=== PATIENT | male | born 1945 | race Caucasian/White ===

== ENCOUNTER → 2016-09-16 | Outpatient (REF) ==
[~2016-09-16] MED LIST: 00186-0372-20 IH; ANTIVERT 25MG25 MG PO; ASPIRIN 32325 MG/TAB PO; CEPHALEXIN500 M1 PO; LORTAB 5/500 501 TAB PO; NAPROXEN EC500 MG PO; NO HOME MEDICATIONS; SEPTRA DS 8001 TAB PO; TOPROL XL25 MG PO
[2016-09-16 18:47] LABS: THYROID STIMULATING HORMONE 2.78 uIU/mL (0.465-4.680)
[2016-09-16 19:30] LABS: PSA-TOTAL 1.96 ng/mL (0-4)
== END ==
LOC: ZLAB.WCH 18:04
PROVIDERS: Internal Medicine
DX: Z01.89 Encounter for other specified special examinations (principal)
CPT/HCPCS: G0103

== ENCOUNTER → 2017-09-11 | Outpatient (REF) ==
[2017-09-11 16:41] LABS: THYROID STIMULATING HORMONE 2.48 uIU/mL (0.465-4.680)
[2017-09-11 17:20] LABS: PSA-TOTAL 1.89 ng/mL (0-4)
== END ==
LOC: ZLAB.WCH 15:53
PROVIDERS: Internal Medicine
DX: Z01.89 Encounter for other specified special examinations (principal)
CPT/HCPCS: G0103

== ENCOUNTER 2017-10-08 08:42 | Day surgery (SDC) | payer MEDICARE, BC ==
[~2017-10-08] VITALS: Ht 177.8 cm; Wt 64.0 kg
[2017-10-08] VITALS (8 sets, daily range): BP systolic 99–133; BP diastolic 55–97; PULSE 64–81; TEMP 97–97.5
[2017-10-08] MEDS ORDERED: SYMBICORT AER 160 IH (09:45)
[2017-10-08] MEDS ORDERED: VENTOLIN0.09 MG IH (09:46)
[2017-10-08] MEDS ORDERED: NORCO 325 MG-51 TAB PO (13:47)
== END 2017-10-08 14:33 | disposition home or self-care (01) ==
LOC: SDCO 08:42
DX: K40.91 Unilateral inguinal hernia, without obstruction or gangrene, recurrent (principal); J43.9 Emphysema, unspecified; K21.9 Gastro-esophageal reflux disease without esophagitis; Z90.2 Acquired absence of lung [part of]; Z87.891 Personal history of nicotine dependence; Z85.118 Personal history of other malignant neoplasm of bronchus and lung
CPT/HCPCS: A4314; C1781; J0690; J1100; J2704; J3010; J7120

== ENCOUNTER 2018-03-26 06:11 | Day surgery (SDC) | payer MEDICARE, BC ==
[~2018-03-26] VITALS: Ht 177.8 cm; Wt 55.0 kg
[~2018-03-26 06:11] MED LIST changes: +00186-0370-20 IH; +NORCO 325 MG-51 TAB PO; +VENTOLIN0.09 MG IH
[2018-03-26 06:35] VITALS: BP 127/80; PULSE 92; TEMP 97.7
[2018-03-26 07:55] VITALS: BP 108/73; PULSE 89; TEMP 97
[2018-03-26 08:10] VITALS: BP 82/60; PULSE 88
[2018-03-26 08:25] VITALS: BP 116/78; PULSE 80
[2018-03-26 08:40] VITALS: BP 108/76; PULSE 79
== END 2018-03-26 09:14 | disposition home or self-care (01) ==
LOC: SDCO 06:11
DX: Z12.11 Encounter for screening for malignant neoplasm of colon (principal); K62.1 Rectal polyp; K22.10 Ulcer of esophagus without bleeding; K21.0 Gastro-esophageal reflux disease with esophagitis; K22.2 Esophageal obstruction; K92.1 Melena; J43.9 Emphysema, unspecified; K57.30 Diverticulosis of large intestine without perforation or abscess without bleeding; K64.1 Second degree hemorrhoids; Z86.010 Personal history of colon polyps; Z85.118 Personal history of other malignant neoplasm of bronchus and lung; Z87.891 Personal history of nicotine dependence
CPT/HCPCS: J2704; J7120

== ENCOUNTER → 2018-06-07 | Outpatient (REF) | LOC: ZLAB.WCH 15:54 | DX: Z01.89 Encounter for other specified special examinations (principal) ==

== ENCOUNTER → 2018-06-10 | Outpatient (CLI) | payer MEDICARE, BC | LOC: COL.PUL 07:06 | DX: Z01.818 Encounter for other preprocedural examination (principal); N28.89 Other specified disorders of kidney and ureter; J43.1 Panlobular emphysema; Z87.891 Personal history of nicotine dependence ==

== ENCOUNTER 2018-06-15 10:37 | Inpatient (IN) | payer MEDICARE, BC ==
[~2018-06-15] VITALS: Ht 175.3 cm; Wt 65.6 kg
[2018-06-17] VITALS (12 sets, daily range): BP systolic 123–143; BP diastolic 61–82; PULSE 78–97; TEMP 97.2–98.3
--- NOTE | 2018-06-17 06:20 | NUR ---
Patient arrives to pre-op area independently at 0540. He is alert and oriented. Procedure confirmed, denies any questions, and verbalizes understanding. VSS and WNL on room air. Assessment completed and documented in admission B form. Pre-op medications given. Pre-op labs drawn. Patient's family brought to the bedside. Patient denies any needs at this time. Call light usage taught and within reach. Will continue to monitor.
--- NOTE | 2018-06-17 06:59 | NUR ---
Patient taken to PACU for block. Patient's belonging bag x1 taken to PACU and labeled with patient sticker. Patient's family took his dentures, glasses, jacket, and inhalers x2 with them.
--- NOTE | 2018-06-17 11:30 | NUR ---
Patient is back from surgery. He is a little confused and is not able to talk very well yet. He tries to answer questions but conversation is confused. Collin drain to bulb suction, drainage is dark red. Midline incision has gauze dressing, is C/D/I. Lapsites are C/D/I. Raya secured to leg, urine is dark red and clear, no clots noted. Encouraged patient to cough and deep breath. Patient denies pain and nausea at this time. Will continue to monitor.
--- NOTE | 2018-06-17 19:00 | NUR ---
Patient continues to do well. Denies nausea. Is tolerating clear liquids well. He stated he is having increased pain. Urine continues to be dark red. Dressings remain C/D/I. IVF's infusing as ordered. No other changes at this time. Call light within reach. Family at bedside.
--- NOTE | 2018-06-17 19:50 | NUR ---
Assessment completed. Patient is A&O x 4. VSS, on room air. Reports pain to abdomen with movement. Abdomen is soft, tender with audible bowel sounds. Reports passing gas. Abdominal midline with praneeth under gauze dressing is CDI. Abdominal lap sites x 3 with bandaids are CDI. LORI bulb to suction with a small amount of serosangeious output. Tolerating diet with no c/o nausea. Raya catheter to DD with pink urine draining with sediment. Raya catheter appears to be positional in regards to urine output. BLE scds on. IVF infusing with intermittent antibiotic. Discussed ERAS protocol and orders. Will ambulate with patient in the hallway this evening. Denies any concerns or needs at this time. Bed is in a low position with call light in reach.
--- NOTE | 2018-06-17 21:45 | NUR ---
Patient ambulated out to the surgical desk and back to room with this nurse, gait steady. Patient did c/o of having more abdominal pain with movement but denied wanting to take any pain medication at this time. Assisted with repositioning back into bed. Call light left within reach.
[2018-06-18] VITALS (14 sets, daily range): BP systolic 110–164; BP diastolic 66–94; PULSE 72–145; TEMP 97.5–98.4
--- NOTE | 2018-06-18 00:20 | NUR ---
Patient dangled on the edge of the bed stated this helps him relief more gas. Raya catheter continues to be positional with yellow sediment urine draining.
[2018-06-18 06:23] LABS: BASO % 0.1 % (0.0-2.0); GRAN # 9.9 (1.4-6.5); GRAN % 87.1 % (42.2-75.2); HEMATOCRIT 39.2 % (42.0-52.0); HEMOGLOBIN 12.7 g/dl (13.5-18.0); LYMPH # 0.7 (1.2-3.4); LYMPH % 5.7 % (20.0-51.0); MEAN CELL VOLUME 91 fl (80.0-100.0); MEAN CORPUSCULAR HEMOGLOBIN 30 pg (27.0-31.0); MEAN CORPUSCULAR HGB CONC 32 g/dl (33.0-37.0); MEAN PLATELET VOLUME 10.6 fl (7.4-10.4); MONO # 0.8 (0.1-0.6); MONO % 6.7 % (1.7-9.3); PLATELET COUNT 199 K/mm3 (130-400); REDCELL DISTRIBUTION WIDTH-CV 12.5 % (11.5-14.5)
[2018-06-18 06:36] LABS: CALCIUM 8.7 mg/dL (8.4-10.2); CREATININE, serum 1.3 mg/dL (0.66-1.25); POTASSIUM 4.5 mmol/L (3.4-5.0)
--- NOTE | 2018-06-18 06:44 | NUR ---
Patient has rested intermittently through the night. VSS. Oral pain medication given for c/o abdominal pain. Midline gauze dressing remains CDI. Reported passing a little bit of gas yesterday and none this morning. LORI bulb remains to suction with a total of 30 ml of bloody output. Raya catheter remains to DD with yolanda sediment urine draining. IVF infusing. Denies any concerns or needs at this time, call light within reach.
--- NOTE | 2018-06-18 08:17 | NUR ---
Patient alert & oriented this am. A light breakfast ordered, encouraged him to take it slow. Patient up and ambulated the halls & dyspnea noted with exertion. Took a while to catch his breath after the walk. Patient pain mananged. Abdomen soft, he reports passing flatus. abdominal dressing intact. Raya to DD, yolanda urine output with a few clots noted. Jimmie méndez
--- NOTE | 2018-06-18 09:14 | NUR ---
found patient resting in bed. he is here due to a left laparscopic nephrectomy A&OX4. reported no pain. abd was clean dry and intact. shift assessment done. IV in left hand showed no signs of infiltration or infection. call light was within reach and patient stated no further needs.
--- NOTE | 2018-06-18 09:35 | NUR ---
SW and SW student met with the patient to discuss discharge plan. The patient lives in [place] with his , Arti. He reports independence with ADLs and has a cane. The patient's PCP is Dr. Michael Hathaway and he receives his medications at [facility]. He reports no difficulties obtaining his meds. The patient does not have advanced directives in EMR, but states that he does have them completed. The patient plans to return home with his upon discharge. No additional needs at this time.
--- NOTE | 2018-06-18 13:01 | NUR ---
drained 600 ml of light yellow urine from frederick bag. drained 30ml of bright red fluid from mian drain. patient had a bed bath and a gown change. patient stated no pain. left with company. call light within reach.
--- NOTE | 2018-06-18 13:02 | NUR ---
Initial visit; Patient thanked Music Arranger for looking in on him and offering God's blessings and to keep him in her prayers.
--- NOTE | 2018-06-18 14:44 | NUR ---
Patient up to the bathroom, he reports having gas pain. He is going to sit in the bathroom for a while. Patient had a light lunch and did okay. Patient has been coughing, we reviewed splinting abdomen for pain managment. Will monitor.
--- NOTE | 2018-06-18 15:21 | NUR ---
Patient up and ambulated in the halls & he again at dyspnea on exertion. He is typical signs of COPD, complaints of needing air-wants the door & curtian left open to help air circulate in room. He liked being in the hallway because he felt more air movement.
--- NOTE | 2018-06-18 18:46 | NUR ---
Patient more tachy this evening, O2 sats decreased. He reports pressure in his chest. His cough has become more productive. notifed & order obtained. Arin COLIN Notifed of consult & she rounded & orders obtained. Tele on patient-he is tachy. EKG,ABG completed by RT. CT obtained patient to take him to CT to rule out PE. Labs to be drawn. Will report off to night nurse
[2018-06-18 18:58] LABS: ARTERIAL BLD GAS O2 SATURATION 91.2 % (92-100); ARTERIAL BLD GAS TCO2 CT 29.8; ARTERIAL BLOOD GAS HCO3 28.7 meq/L (22-26); ARTERIAL BLOOD GAS PCO2 35.2 mmHg (35-45); ARTERIAL BLOOD GAS PO2 61.5 mmHg (80-100); ARTERIAL BLOOD GAS pH 7.53 (7.35-7.45)
--- NOTE | 2018-06-18 19:15 | NUR ---
Pt back from CT scan. Report received from Veronica SANTOS. Pt has labored breathign and states he feels "pressure" in chest. O2 sat 91% on room air. Pt c/o incisional pain 07/04. Abdomen firm. Bowel sounds negative. Lungs coarse to ausculation with decreased air movement on RUL. Lap sites x3 covred with bandaids + midline covered with guaze. Dressings are clean dry and intact. LORI drain to bulb suction. Pt is tachycardic and has productive cough. Pt denies needs at this time.
[2018-06-18 19:40] LABS: BASO % 0.3 % (0.0-2.0); EOS % 0.1 % (0-4.0); GRAN # 10.4 (1.4-6.5); GRAN % 87.6 % (42.2-75.2); HEMATOCRIT 41.9 % (42.0-52.0); HEMOGLOBIN 13.9 g/dl (13.5-18.0); LYMPH # 0.8 (1.2-3.4); LYMPH % 6.3 % (20.0-51.0); MEAN CELL VOLUME 91 fl (80.0-100.0); MEAN CORPUSCULAR HEMOGLOBIN 30 pg (27.0-31.0); MEAN CORPUSCULAR HGB CONC 33 g/dl (33.0-37.0); MEAN PLATELET VOLUME 10.4 fl (7.4-10.4); MONO # 0.6 (0.1-0.6); MONO % 5.4 % (1.7-9.3); PLATELET COUNT 204 K/mm3 (130-400); REDCELL DISTRIBUTION WIDTH-CV 12.7 % (11.5-14.5)
[2018-06-18 19:48] LABS: ALBUMIN 3.7 gm/dL (3.5-5.0); BILIRUBIN,TOTAL 0.7 mg/dL (0.0-1.0); CALCIUM 8.9 mg/dL (8.4-10.2); CREATININE, serum 1.42 mg/dL (0.66-1.25); MAGNESIUM 1.8 mg/dL (1.6-2.3); POTASSIUM 4.1 mmol/L (3.4-5.0); TOTAL PROTEIN 6.6 gm/dL (6.4-8.2)
[2018-06-18 19:59] LABS: TROPONIN-I 0.025 ng/mL (0.000-0.035)
--- NOTE | 2018-06-18 20:05 | NUR ---
Pt placed on O2@2L via Nc by RT due to O2 sat <90%. Will continue to monitor.
--- NOTE | 2018-06-18 20:20 | NUR ---
Received call from RT. Pts HR is elevated to 140-150s post breathing tx. Pt has productive cough and coarse lung sounds.
--- NOTE | 2018-06-18 20:27 | NUR ---
Lyla REYES called about pts assessment findings and VS. Awaiting CT results for orders.
--- NOTE | 2018-06-18 20:35 | NUR ---
CT resulted. Orders received from Lyla REYES for NGT to LIWS.
--- NOTE | 2018-06-18 21:05 | NUR ---
16Fr NGT inserted in R nare. Pt preoxygenated prior to procedure. Gastric contents aspirated. NGT tube 58 cm at nare, secured. Immediate return of large amount of gastric contents after hooking to LIWS. Well tolerated by patient. Pt remains tachycardiac, but reports some relief. Will continue to monitor.
--- NOTE | 2018-06-18 21:45 | NUR ---
Lyla REYES at bedside. PRN pain medication administered and VS monitored. Additional pain medication given per APPEALS ANALYST order. Will continue to monitor.
--- NOTE | 2018-06-18 22:08 | NUR ---
Pt condition reassessed. Pt reports some relief. Spo2 checked- 84% on O2 @ 2L. O2 gradually increased with little effect. Pt sating 89-90% on O2@ 6L.
--- NOTE | 2018-06-18 22:15 | NUR ---
RT called to inform about pts O2 sat and increased oxygen demand.
--- NOTE | 2018-06-18 22:24 | NUR ---
Orders received from Lyla REYES to IV Metoprolol d/t pts elevated HR in 130-140s.
--- NOTE | 2018-06-18 22:25 | NUR ---
pt placed on high flow nc due to patients increased oxygen needs. RN in room.
--- NOTE | 2018-06-18 22:31 | NUR ---
Lyla REYES called about pts VS. Vital signs are stable. No orders.
--- NOTE | 2018-06-18 22:33 | NUR ---
Pts oxygen titrated down to O2@2L via NC. O2sat 91%.
[2018-06-19] VITALS (213 sets, daily range): BP systolic 57–125; BP diastolic 44–77; PULSE 60–135; TEMP 97.5–98.8; O2SAT 77–95
--- NOTE | 2018-06-19 05:10 | NUR ---
Dr. Thrasher notified of consult for this pt.
--- NOTE | 2018-06-19 06:30 | NUR ---
Pt resting with HOB elevated. NGT to LIWS. Pt c/o some increased distension this AM. Pain medication has been adminsitered PRN throughout the night. No distress noted.
[2018-06-19 07:20] LABS: BASO # 0.1 (0.0-0.2); BASO % 0.4 % (0.0-2.0); EOS % 0.3 % (0-4.0); GRAN # 10.3 (1.4-6.5); GRAN % 86.5 % (42.2-75.2); HEMATOCRIT 40.5 % (42.0-52.0); HEMOGLOBIN 13.1 g/dl (13.5-18.0); LYMPH # 0.7 (1.2-3.4); LYMPH % 6.1 % (20.0-51.0); MEAN CELL VOLUME 93 fl (80.0-100.0); MEAN CORPUSCULAR HEMOGLOBIN 30 pg (27.0-31.0); MEAN CORPUSCULAR HGB CONC 32 g/dl (33.0-37.0); MEAN PLATELET VOLUME 10.7 fl (7.4-10.4); MONO # 0.8 (0.1-0.6); MONO % 6.4 % (1.7-9.3); PLATELET COUNT 206 K/mm3 (130-400); RED BLOOD COUNT 4.38 M/mm3 (4.20-5.60); REDCELL DISTRIBUTION WIDTH-CV 12.9 % (11.5-14.5)
[2018-06-19 07:33] LABS: CALCIUM 8.6 mg/dL (8.4-10.2); CREATININE, serum 1.43 mg/dL (0.66-1.25); POTASSIUM 4.7 mmol/L (3.4-5.0)
--- NOTE | 2018-06-19 08:00 | NUR ---
Alert. Complained of sharp intermittent pain in left lower abdomen. Medicated with Dilaudid with relief. NG to LIS with small amounts dark brown drainage. Abdomen distended. No bowel sounds noted. No c/o nausea. NPO. IV fluids infusing. LORI drain to bulb suction. Raya draining clear yellow urine. Tachycardic. O2 increased to 6L/ nasal cannula per RT.
[2018-06-19 13:08] LABS: ARTERIAL BLD GAS TCO2 CT 29.1; ARTERIAL BLOOD GAS BASE EXCESS 2.7 (-2-2); ARTERIAL BLOOD GAS HCO3 27.8 meq/L (22-26); ARTERIAL BLOOD GAS PCO2 44.5 mmHg (35-45); ARTERIAL BLOOD GAS PO2 79.3 mmHg (80-100); ARTERIAL BLOOD GAS pH 7.41 (7.35-7.45)
--- NOTE | 2018-06-19 16:30 | NUR ---
Surgical consult done. Hospitalist saw patient. Dr. Astorga saw patient. ABG's done. O2 to 4L/NC per order. RT treatment done. Echo done. Sat up in recliner chair. Transfers well with minimal assist. Less abdominal pain in PM. Report given to RN. Transferred to ICU per order. Family here.
--- NOTE | 2018-06-19 17:00 | NUR ---
I have assumed care of this patient at this time, we have transferred him from the surgical floor to ICU 4, he is alert/oriented, vital signs stable, denies pain at this time, NG in right nare on LIS, abdomen is distended and BS are absent at this time, heart regular rythm / tachycardic 124 bpm curently, lungs CTA/ diminished, currently on 4 L. and we are titrating to keep sats b/t 90-93% per order, frederick cath is patent with clear yellow urine, LORI drain to left abdomen with scant drainage, family present, denies needs
[2018-06-19 18:31] LABS: HEMATOCRIT 37.7 % (42.0-52.0); HEMOGLOBIN 12.1 g/dl (13.5-18.0); MEAN CELL VOLUME 93 fl (80.0-100.0); MEAN CORPUSCULAR HEMOGLOBIN 30 pg (27.0-31.0); MEAN CORPUSCULAR HGB CONC 32 g/dl (33.0-37.0); MEAN PLATELET VOLUME 10.6 fl (7.4-10.4); PLATELET COUNT 180 K/mm3 (130-400); RED BLOOD COUNT 4.06 M/mm3 (4.20-5.60)
[2018-06-19 18:42] LABS: CALCIUM 8.4 mg/dL (8.4-10.2); CREATININE, serum 1.5 mg/dL (0.66-1.25); MAGNESIUM 2.1 mg/dL (1.6-2.3); POTASSIUM 4.8 mmol/L (3.4-5.0)
--- NOTE | 2018-06-19 19:45 | NUR ---
PT IN BED. PAIN MINIMAL. LEFT UPPER LUNG LOBE COARSE. MINIMAL BOWEL TONES. VERY LITTLE OUTPUT FROM NG AT THIS TIME. PT ALERT AND ORIENTED x3.
[2018-06-20] VITALS (763 sets, daily range): BP systolic 105–143; BP diastolic 66–90; PULSE 96–132; TEMP 97.9–99.6; O2SAT 64–100
--- NOTE | 2018-06-20 | NUR ---
PT'S O2 SATS REMAIN LOW. O2 INCREASED TO 5 liters/HFNC. RT LUNG FIELD STILL COARSE.
--- NOTE | 2018-06-20 03:45 | NUR ---
PT DOES NOT SEEM TO BE DYSPNEIC BUT HIS LUNGS SOUND MORE COARSE. HOSPITALIST DIXIE NOTIFIED. PT NOW ON 10+ liters O2 VIA OXYMASK.
[2018-06-20 05:04] LABS: ARTERIAL BLD GAS O2 SATURATION 81.2 % (92-100); ARTERIAL BLD GAS TCO2 CT 27.4; ARTERIAL BLOOD GAS BASE EXCESS 3.3 (-2-2); ARTERIAL BLOOD GAS HCO3 26.3 meq/L (22-26); ARTERIAL BLOOD GAS pH 7.49 (7.35-7.45)
[2018-06-20 05:05] LABS: ARTERIAL BLOOD GAS PO2 42.6 mmHg (80-100)
--- NOTE | 2018-06-20 05:37 | NUR ---
PT'S RESPIRATORY STATUS NOT IMPROVING. ABGs DRAWN. CHEST X-RAY DONE. PT NOW ON BiPAP. PT'S NOTIFIED. PT SEEN BY MS SQL DEVELOPER.
--- NOTE | 2018-06-20 06:17 | NUR ---
O2 SATS RUNNING LOW 90's ON BiPAP.
[2018-06-20 06:57] LABS: ARTERIAL BLD GAS O2 SATURATION 97.7 % (92-100); ARTERIAL BLD GAS TCO2 CT 26.6; ARTERIAL BLOOD GAS BASE EXCESS 1.2 (-2-2); ARTERIAL BLOOD GAS HCO3 25.4 meq/L (22-26); ARTERIAL BLOOD GAS PCO2 39.1 mmHg (35-45); ARTERIAL BLOOD GAS PO2 113.5 mmHg (80-100); ARTERIAL BLOOD GAS pH 7.43 (7.35-7.45)
--- NOTE | 2018-06-20 07:30 | NUR ---
Bedside report received from DANIELLE Oconnor.
--- NOTE | 2018-06-20 08:10 | NUR ---
Patient taken off bipap, placed on 8L/OM. Family at bedside.
--- NOTE | 2018-06-20 08:15 | NUR ---
Assessment complete, family at bedside. Call light within reach.
[2018-06-20 08:36] LABS: HEMOGLOBIN 11.7 g/dl (13.5-18.0); MEAN CELL VOLUME 94 fl (80.0-100.0); MEAN CORPUSCULAR HEMOGLOBIN 30 pg (27.0-31.0); MEAN CORPUSCULAR HGB CONC 32 g/dl (33.0-37.0); MEAN PLATELET VOLUME 10.3 fl (7.4-10.4); PLATELET COUNT 144 K/mm3 (130-400); RED BLOOD COUNT 3.87 M/mm3 (4.20-5.60)
[2018-06-20 08:40] LABS: HEMATOCRIT 36.3 % (42.0-52.0)
[2018-06-20 08:46] LABS: BAND 2 % (0-10); LYMPHOCYTE 1 % (20.0-51.0); NEUTROPHILS 97 % (42.0-75.2); PLATELET ESTIMATE DECREASED (NORMAL)
[2018-06-20 08:47] LABS: CALCIUM 8.2 mg/dL (8.4-10.2); CREATININE, serum 1.48 mg/dL (0.66-1.25); MAGNESIUM 2.1 mg/dL (1.6-2.3); PHOSPHOROUS 3.1 mg/dL (2.5-4.5); POTASSIUM 4.6 mmol/L (3.4-5.0)
--- NOTE | 2018-06-20 11:21 | NUR ---
PT in working with patient.
--- NOTE | 2018-06-20 12:12 | NUR ---
Patient off bipap and placed on 8L/OM, family at bedside.
--- NOTE | 2018-06-20 15:00 | NUR ---
Patient placed back on bipap, family at bedside.
--- NOTE | 2018-06-20 15:55 | NUR ---
Patient resting quietly with bipap on, call light within reach.
--- NOTE | 2018-06-20 18:42 | NUR ---
LORI drain pulled, pressure dressing applied. Patient tolerated well.
--- NOTE | 2018-06-20 19:30 | NUR ---
Bedside report given to DANIELLE Salter.
--- NOTE | 2018-06-20 20:00 | NUR ---
Shift assessment complete at this time. Plan of care reviewed at bedside with patient. Additional time taken to address any other needs or concerns. Denies pain or any other discomfort. Vitals stable. Will continue to monitor.
--- NOTE | 2018-06-20 23:54 | NUR ---
PT WAS UNWILLINGLY TO TRY BIPAP BECAUSE IT WAS SO MUCH AIR BEING PUSHED IN HE STATED. THEREFORE I TURNED BIPAP MODE BACK TO SPONTANEOUS WITH 16/8 AND A BACK UP RATE OF 20 AND FI02 OF 65. PT IS ANDREW VERY WELL AND AGREED WITH WEAR BIPAP ALL NIGHT WITH HUMIDIFCATION AND FULL FACE MASK. IT ANDREW WELL AND SATS ARE 99 TO 100 DOING GREAT.
[2018-06-21] VITALS (792 sets, daily range): BP systolic 108–143; BP diastolic 62–83; PULSE 72–97; TEMP 97.8–98.5; O2SAT 71–100
--- NOTE | 2018-06-21 | NUR ---
Shift reassessment complete at this time. No changes from previous assessment. Vitals stable at this time. Reports no pain after PRN dilaudid administration. Will continue to monitor.
--- NOTE | 2018-06-21 04:00 | NUR ---
Shift reassessment complete at this time. No changes from previous assessment. Vitals stable at this time. Denies pain or any other discomfort. Will continue to monitor.
[2018-06-21 05:28] LABS: ARTERIAL BLD GAS TCO2 CT 24.7; ARTERIAL BLOOD GAS BASE EXCESS -0.7 (-2-2); ARTERIAL BLOOD GAS HCO3 23.5 meq/L (22-26); ARTERIAL BLOOD GAS PCO2 37.3 mmHg (35-45); ARTERIAL BLOOD GAS PO2 60.1 mmHg (80-100); ARTERIAL BLOOD GAS pH 7.42 (7.35-7.45)
[2018-06-21 05:57] LABS: MEAN CELL VOLUME 95 fl (80.0-100.0); MEAN CORPUSCULAR HGB CONC 31 g/dl (33.0-37.0); PLATELET COUNT 127 K/mm3 (130-400); RED BLOOD COUNT 3.23 M/mm3 (4.20-5.60); REDCELL DISTRIBUTION WIDTH-CV 12.9 % (11.5-14.5)
[2018-06-21 05:59] LABS: HEMOGLOBIN 9.6 g/dl (13.5-18.0); MEAN CORPUSCULAR HEMOGLOBIN 30 pg (27.0-31.0)
[2018-06-21 06:00] LABS: HEMATOCRIT 30.6 % (42.0-52.0)
[2018-06-21 06:12] LABS: CALCIUM 8.3 mg/dL (8.4-10.2); CREATININE, serum 1.22 mg/dL (0.66-1.25); POTASSIUM 4.6 mmol/L (3.4-5.0)
--- NOTE | 2018-06-21 07:35 | NUR ---
Received bedside report from DANIELLE Salter.
--- NOTE | 2018-06-21 07:53 | NUR ---
Bedside report given to Adonis, RNs
[2018-06-21 11:22] LABS: BAND 1 % (0-10); LYMPHOCYTE 4 % (20.0-51.0); NEUTROPHILS 93 % (42.0-75.2); PLATELET ESTIMATE DECREASED (NORMAL); TOXIC GRANULATION PRESENT
--- NOTE | 2018-06-21 20:00 | NUR ---
Shift assessment complete at this time. Plan of care reviewed at bedside with patient. Additional time taken to address any other needs or concerns. Vitals stable at this time. Denies pain or any other discomfort. Will continue to monitor.
[2018-06-22] VITALS (362 sets, daily range): BP systolic 118–145; BP diastolic 58–68; PULSE 61–87; TEMP 97.2–98.2; O2SAT 81–100
--- NOTE | 2018-06-22 | NUR ---
Pt sleeping comfortably in bed. Denies pain or any other discomfort. Vitals stable at this time. Will continue to monitor.
--- NOTE | 2018-06-22 04:00 | NUR ---
Pt sleeping comfortably in bed. Denies pain or any other discomfort. Vitals stable at this time. Will continue to monitor.
[2018-06-22 05:22] LABS: GRAN # 3.1 (1.4-6.5); LYMPH # 0.3 (1.2-3.4); LYMPH % 6.9 % (20.0-51.0); MEAN CELL VOLUME 96 fl (80.0-100.0); MEAN CORPUSCULAR HGB CONC 32 g/dl (33.0-37.0); MONO # 0.2 (0.1-0.6); MONO % 5.5 % (1.7-9.3); PLATELET COUNT 143 K/mm3 (130-400); RED BLOOD COUNT 2.93 M/mm3 (4.20-5.60); REDCELL DISTRIBUTION WIDTH-CV 12.8 % (11.5-14.5)
[2018-06-22 05:23] LABS: HEMATOCRIT 28.1 % (42.0-52.0); HEMOGLOBIN 8.9 g/dl (13.5-18.0); MEAN CORPUSCULAR HEMOGLOBIN 30 pg (27.0-31.0)
[2018-06-22 05:32] LABS: CALCIUM 8.4 mg/dL (8.4-10.2); CREATININE, serum 1.28 mg/dL (0.66-1.25); POTASSIUM 4.3 mmol/L (3.4-5.0)
[2018-06-22 06:15] LABS: ARTERIAL BLD GAS O2 SATURATION 98.7 % (92-100); ARTERIAL BLD GAS TCO2 CT 23.6; ARTERIAL BLOOD GAS BASE EXCESS -1.3 (-2-2); ARTERIAL BLOOD GAS HCO3 22.6 meq/L (22-26); ARTERIAL BLOOD GAS PCO2 34.7 mmHg (35-45); ARTERIAL BLOOD GAS pH 7.43 (7.35-7.45)
--- NOTE | 2018-06-22 07:35 | NUR ---
Bedside report given to DANIELLE Grajeda.
--- NOTE | 2018-06-22 08:00 | NUR ---
PATIENT AWAKE IN BED. NG TO LIS. PATIENT STATES HE IS HAVING SOME LOWER ABDOMINAL PAIN, BUT STATES IT MORE FEELS LIKE HE HAS TO HAVE A BOWEL MOVEMENT. HE DENIES ANY NAUSEA OR VOMITING. NG TUBE WAS CLAMPED AT 0735 PER ORDERS
--- NOTE | 2018-06-22 10:30 | NUR ---
SW attended clinical rounds. The patient is to transfer up to the floor today, 06/22. SW then followed up with the patient and patient's , Arti, to review discharge plan. The patient reports that he still plans to return home upon discharge. SW discussed physical therapies recommendation of outpatient PT. The patient's reports that she works at [employer] and if outpatient therapy is needed, then she could get that set up. SW to continue to follow.
--- NOTE | 2018-06-22 11:50 | NUR ---
REPORT CALLED TO DANIELLE ZHANG ON SURGICAL. PATIENT WILL BE TAKEN TO ROOM 326 VIA WHEELCHAIR. PORTABLE TELEMETRY IN PLACE.
--- NOTE | 2018-06-22 13:04 | NUR ---
Patient to from 326. Report from ICU nurse Nicci. Patient is alert & oriented. His family at bedside. He denies pain. Tolerating clear liquids. Raya to DD. Abdomen soft, midline & lap site incision praneeth intact . Bowels audible, he reports passing flatus. Vss, Tele on. 2L per NC. Scds ble. Will monitor.
--- NOTE | 2018-06-22 19:37 | NUR ---
Patient has done well this afternoon, He has had alot of visitors. He continues to tolerate clears, no nausea. No BM today. Raya to DD urine output with sediment noted. adequate output, ivf per picc to rue. bedside report to andres german
--- NOTE | 2018-06-22 20:00 | NUR ---
Patient has been sitting up in the chair since the beginning of shift change, assisted with standby assist to the bed at this time. Assessment completed. Patient is A&O x 4. VSS, currently on 2 liters of supplemental O2 via nasal cannula. Tele maintained, HR has been running in the 70's. Reports pain with cough and movement, denies needing any pain medication at this time. Abdominal midline and 3 lap sites with praneeth all intact. RLQ previous LORI site with a bandaid is CDI. Bowel sounds active, states he can feel his stomach gurgling. Reports passing gas. Denies any nausea, currently drinking an ensure at bedside. Patient does have a productive cough, small amounts of thick sputum in cup at bedside. Raya catheter to DD with yellow sediment urine draining. PICC line to CATHERINE flushes well with good blood return, IVF infusing with intermittent antibiotic via PICC line. Noted BiPAP orders for the evening, bipap to be set up by RT. Deneis any concerns or needs at this time, call light is within reach.
--- NOTE | 2018-06-22 21:30 | NUR ---
Patient reports coughing more after last respiratory treatment. Requested his O2 saturation checked, currently 94% on 2 liters of supplemental O2 via nasal cannula. BiPAP is set up for the evening, patient requested to put it on in 1 hour when he's ready for bed.
--- NOTE | 2018-06-22 22:44 | NUR ---
BiPAP applied to patient at this time.
[2018-06-23 02:51] VITALS: BP 142/65; PULSE 71; TEMP 97.7
--- NOTE | 2018-06-23 03:11 | NUR ---
BiPAP removed at this time per patient's request. Patient stated he felt as if he kept getting tangled in the BiPAP and would like to switch back to the O2 via NC. O2 saturation at this time is 96% on 2 liters of NC. Continues to report abdomen "hurts a little" denies needing any pain medication. Denies any concerns or needs at this time, call light remains within reach.
--- NOTE | 2018-06-23 05:02 | NUR ---
Patient has rested intermittently through the night. VSS. Tele maintained. Patient wore the BiPAP from 2230 to 0330 and then requested it be taken off, 2 liters of NC on with 02 sats this morning at 94%. Patient has a productive cough, especially after respiratory treatments. Reports some abdominal "soreness" continues to deny needing any pain medication. Abdominal midline and lap sites with praneeth intact. Reports passing gas and belching a lot this morning. Raya catheter continues to DD with yellow sediment urine draining. IVF to CATHERINE PICC with intermittent antibiotic. Denies and concerns or needs at this time, call light remains within reach.
--- NOTE | 2018-06-23 07:16 | NUR ---
Report to DANIELLE Latham.
[2018-06-23 07:18] LABS: MEAN CELL VOLUME 95 fl (80.0-100.0); MEAN CORPUSCULAR HGB CONC 32 g/dl (33.0-37.0); MEAN PLATELET VOLUME 11.2 fl (7.4-10.4); PLATELET COUNT 175 K/mm3 (130-400); RED BLOOD COUNT 3.08 M/mm3 (4.20-5.60); REDCELL DISTRIBUTION WIDTH-CV 12.7 % (11.5-14.5)
[2018-06-23 07:24] LABS: HEMATOCRIT 29.1 % (42.0-52.0); HEMOGLOBIN 9.3 g/dl (13.5-18.0); MEAN CORPUSCULAR HEMOGLOBIN 30 pg (27.0-31.0)
[2018-06-23 07:25] VITALS: BP 132/55; PULSE 74; TEMP 98.1
[2018-06-23 07:35] LABS: CALCIUM 8.4 mg/dL (8.4-10.2); CREATININE, serum 1.13 mg/dL (0.66-1.25)
--- NOTE | 2018-06-23 08:00 | NUR ---
Reported on to primary nurse, DANIELLE Latham. Dyspnea on exertion. HOB elevated, O2 with NC @2L(spo2- 93%), and IS every 10 minutes. NS IV @ 75ml/hr - CDI. Abd midline incision, praneeth look CDI. Left side abd praneeth look CDI. Indwelling cath is in tact, ecchymosis in genital area. Pt does not c/o any pain at this time. SCD's are in place on bilateral legs. Pt sitting up in bed visiting family.
[2018-06-23 09:03] LABS: BAND 3 % (0-10); NEUTROPHILS 92 % (42.0-75.2); PLATELET ESTIMATE NORMAL (NORMAL)
--- NOTE | 2018-06-23 09:17 | NUR ---
Patient sitting up in chair. Family at bedside. He is in good spirits. Denies needing pain medication. abdomen soft, he reports passing flatus, bowels audible, no Bm yet. Liyah intact, incisions open to air. Scsd ble. He is tolerating clears, no nausea. Picc to RUE, IVF per orders. Will monitor
--- NOTE | 2018-06-23 10:26 | NUR ---
Adriel continues to sit up in chair with minimal complaints. supportive family at bedside. Jimmie méndez
[2018-06-23 11:00] VITALS: BP 132/56; PULSE 94; TEMP 98.4
--- NOTE | 2018-06-23 11:07 | NUR ---
PT helped transfer pt from bed to the chair. Had a good appetite for breakfast.
--- NOTE | 2018-06-23 11:48 | NUR ---
SW attended clinical rounds to discuss discharge plans. Patient could possibly discharge home tomorrow or Thursday. SW met with patient and family abou possible home O2 needs. SW reported if patient requires home O2, she can help arrange those services. SW also inquired if patient continues to be interested in outpatient PT upon discharge. Patient and family are unsure at this time but SW will continue to follow up and also see what PT/OT recommends.
--- NOTE | 2018-06-23 13:32 | NUR ---
Doctors have rounded orders obtained. Oatmeal ordered for lunch to slowly progress diet. Pain continues to be managed. Jimmie méndez.
[2018-06-23 15:08] VITALS: BP 130/58; PULSE 73; TEMP 97.8
--- NOTE | 2018-06-23 19:29 | NUR ---
Patient sitting up in bed. Family at bedside. He has done well with diet progression. No n/v. His abdomen does seem slightly more distented this evening, but he denies pain. Picc to INT. Dorota to DD output yolanda output with sediment noted. Vss, he does remain on O2. Report to night nurse
[2018-06-23 19:55] VITALS: BP 154/67; PULSE 79; TEMP 97.9
--- NOTE | 2018-06-23 21:22 | NUR ---
Pt resting in bed, shift assessment complete, left Pt call light in reach, bed in lowesy position.
[2018-06-23 23:39] VITALS: BP 133/71; PULSE 86; TEMP 98
[2018-06-24 04:30] VITALS: BP 136/64; PULSE 73; TEMP 97.7
[2018-06-25 08:00] VITALS: BP 141/61; PULSE 89; TEMP 97.7
[2018-06-25 12:00] VITALS: BP 119/57; PULSE 85; TEMP 97.2
[2018-06-25] MEDS ORDERED: PREDNISONE10 MG PO (12:52)
[2018-06-25] MEDS ORDERED: LEVAQUIN 5500 MG/TA1 PO (12:53)
[2018-06-25] MEDS ORDERED: OMNICEF 300MG300 MG PO (12:53)
--- NOTE | 2018-06-25 14:45 | NUR ---
Patient has done well today. Ready for discharge home. Hospitalist team, , & have rounded this am. Orders obtained. Patient has tolerated meals today, without nausea. Pain managed without medication. Lap site & midline incision edges well approximated, praneeth removed per order by . Patient vitals have remained stable on room air. He does continue to have dyspnea with exertion. Patient voiding without difficulty & had a stool this am. good bowel function. Patient his & son given all discharge teaching & verified understanding. Patient scripts were sent to pharmacy, we reviewed script for antibioitcs & predisone taper. We reviewed script for pain medication and medication safety. Follow up appts discussed. We reviewed incision & incision care. Patient assisted to dress, Picc was removed by AIV. Patient wheeled out with all belongings, his family taking him home
[2018-06-25 14:55] LABS: HEMATOCRIT 31.5 % (42.0-52.0); HEMOGLOBIN 10.4 g/dl (13.5-18.0); MEAN CELL VOLUME 91 fl (80.0-100.0); MEAN CORPUSCULAR HEMOGLOBIN 30 pg (27.0-31.0); MEAN CORPUSCULAR HGB CONC 33 g/dl (33.0-37.0); MEAN PLATELET VOLUME 11.4 fl (7.4-10.4); PLATELET COUNT 183 K/mm3 (130-400); RED BLOOD COUNT 3.45 M/mm3 (4.20-5.60); REDCELL DISTRIBUTION WIDTH-CV 12.2 % (11.5-14.5)
[2018-06-25 14:58] LABS: BAND 1 % (0-10); LYMPHOCYTE 5 % (20.0-51.0); METAMYELOCYTE 1 % (0-0); NEUTROPHILS 88 % (42.0-75.2); PLATELET ESTIMATE NORMAL (NORMAL)
[2018-06-25 15:45] LABS: ALBUMIN 2.5 gm/dL (3.5-5.0); BILIRUBIN,TOTAL 0.5 mg/dL (0.0-1.0); CALCIUM 8.4 mg/dL (8.4-10.2); CREATININE, serum 1.09 mg/dL (0.66-1.25); POTASSIUM 4.2 mmol/L (3.4-5.0)
[2018-06-25 17:46] LABS: HEMATOCRIT 31.5 % (42.0-52.0); HEMOGLOBIN 10.4 g/dl (13.5-18.0); MEAN CELL VOLUME 91 fl (80.0-100.0); MEAN CORPUSCULAR HEMOGLOBIN 30 pg (27.0-31.0); MEAN CORPUSCULAR HGB CONC 33 g/dl (33.0-37.0); MEAN PLATELET VOLUME 11.4 fl (7.4-10.4); PLATELET COUNT 183 K/mm3 (130-400); RED BLOOD COUNT 3.45 M/mm3 (4.20-5.60); REDCELL DISTRIBUTION WIDTH-CV 12.2 % (11.5-14.5)
[2018-06-25 17:51] LABS: BAND 1 % (0-10); LYMPHOCYTE 5 % (20.0-51.0); METAMYELOCYTE 1 % (0-0); NEUTROPHILS 88 % (42.0-75.2)
[2018-06-25 18:32] LABS: ALBUMIN 2.5 gm/dL (3.5-5.0); BILIRUBIN,TOTAL 0.5 mg/dL (0.0-1.0); CALCIUM 8.4 mg/dL (8.4-10.2); CREATININE, serum 1.09 mg/dL (0.66-1.25); POTASSIUM 4.2 mmol/L (3.4-5.0)
--- NOTE | 2018-06-25 21:37 | NUR ---
PT RINSED OUT MOUTH AFTER TX. PT HAS A STRONG LOOSE NONPRODUCTIVE COUGH.
== END 2018-06-25 14:45 | disposition home or self-care (01) | DRG 656 ==
LOC: ICU 06-17 05:31 → INPTSU 06-17 05:31 → SURG 06-17 07:30 → ICU 06-19 16:37 → SURG 06-19 16:37 → ICU 06-21 09:47 → SURG 06-22 11:58
PROVIDERS: Hospitalist; Internal Medicine Pulmonary Disease; Nurse Practitioner; Nurse Practitioner Family; Physician Assistant; ADMIT Urology
PROC: 0TT14ZZ Resection of Left Kidney, Percutaneous Endoscopic Approach (ICD-10-PCS; principal; 2018-06-17 07:30)
PROC: 0TT70ZZ Resection of Left Ureter, Open Approach (ICD-10-PCS; 2018-06-17 07:30)
DX: C65.2 Malignant neoplasm of left renal pelvis (principal); E43 Unspecified severe protein-calorie malnutrition; J96.00 Acute respiratory failure, unspecified whether with hypoxia or hypercapnia; J18.9 Pneumonia, unspecified organism; I21.A1 Myocardial infarction type 2; K91.30 Postprocedural intestinal obstruction, unspecified as to partial versus complete; R31.0 Gross hematuria; Z85.118 Personal history of other malignant neoplasm of bronchus and lung; J43.9 Emphysema, unspecified; N28.9 Disorder of kidney and ureter, unspecified; D64.9 Anemia, unspecified
CPT/HCPCS: 99232-AI; 99233-AI; A4216; A4314; A9284; C1751; C9113; J0690; J0744; J1100; J1170; J1644; J1720; J1956; J2185; J2250; J2270; J2405; J2704; J2710; J2920; J3010; J7030; J7120; J7512; Q9967

== ENCOUNTER → 2018-08-03 | Outpatient (REF) ==
[~2018-08-03] MED LIST changes: +LEVAQUIN 5500 MG/TA1 PO; +OMNICEF 300MG300 MG PO; +PREDNISONE10 MG PO
== END ==
LOC: ZLAB.WCH 17:30
DX: Z01.89 Encounter for other specified special examinations (principal)

== ENCOUNTER 2020-01-08 08:52 | Emergency (ER) | payer MEDICARE, BC ==
[~2020-01-08] VITALS: Ht 175.3 cm; Wt 63.6 kg
[2020-01-08 08:56] VITALS: TEMP 97.8
[2020-01-08 09:15] LABS: BASO # 0.1 (0.0-0.2); BASO % 0.9 % (0.0-2.0); EOS # 0.1 (0.0-0.7); EOS % 1.8 % (0-4.0); GRAN # 3.7 (1.4-6.5); GRAN % 67.2 % (42.2-75.2); HEMOGLOBIN 14.7 g/dl (13.5-18.0); LYMPH # 1.2 (1.2-3.4); LYMPH % 21.3 % (20.0-51.0); MEAN CELL VOLUME 92 fl (80.0-100.0); MEAN CORPUSCULAR HEMOGLOBIN 30 pg (27.0-31.0); MEAN CORPUSCULAR HGB CONC 33 g/dl (33.0-37.0); MONO # 0.5 (0.1-0.6); MONO % 8.6 % (1.7-9.3); PLATELET COUNT 153 K/mm3 (130-400); RED BLOOD COUNT 4.92 M/mm3 (4.20-5.60); REDCELL DISTRIBUTION WIDTH-CV 12.9 % (11.5-14.5)
[2020-01-08 09:20] LABS: PROTHROMBIN TIME 10.9 SECONDS (9.7-12.8)
[2020-01-08 09:25] LABS: ALANINE AMINOTRANSFERASE 15 U/L (4-49); ALBUMIN 4.5 gm/dL (3.5-5.0); ALKALINE PHOSPHATASE 66 U/L (50-136); ANION GAP 7 mmol/L (7-16); AST,SGOT 26 U/L (15-37); BILIRUBIN,TOTAL 0.9 mg/dL (0.0-1.0); BLOOD UREA NITROGEN 30 mg/dL (9-20); CALCIUM 9.2 mg/dL (8.4-10.2); CARBON DIOXIDE 26 mmol/L (22-30); CHLORIDE 102 mmol/L (98-107); CREATININE, serum 1.17 (0.66-1.25); GLUCOSE 100 mg/dL (74-106); LIPASE 179 U/L (23-300); POTASSIUM 4.7 mmol/L (3.4-5.0); SODIUM 136 mmol/L (137-145); TOTAL PROTEIN 7.7 gm/dL (6.4-8.2)
[2020-01-08 09:40] LABS: TROPONIN-I < 0.012 ng/mL (0.000-0.035)
[2020-01-08] MEDS ORDERED: DOXYCYCLINE 10100 MG PO (12:13)
[2020-01-08] MEDS ORDERED: PROAIR HFA0.09 MG/AC IH (12:13)
[2020-01-08] MEDS ORDERED: PREDNISONE20 MG PO (12:13)
[2020-01-08 13:25] VITALS: BP 126/80; PULSE 75
== END 2020-01-08 12:23 | disposition home or self-care (01) ==
LOC: COL.ER 08:52
PROVIDERS: Emergency Medicine
DX: J44.1 Chronic obstructive pulmonary disease with (acute) exacerbation (principal); I44.7 Left bundle-branch block, unspecified; Z87.891 Personal history of nicotine dependence
CPT/HCPCS: J7030; J7512

== ENCOUNTER 2020-07-31 20:25 | Inpatient (IN) | payer MEDICARE, BC ==
[~2020-07-31] VITALS: Ht 175.3 cm; Wt 68.2 kg
[~2020-07-31 20:25] MED LIST changes: +DOXYCYCLINE 10100 MG PO; +PREDNISONE20 MG PO; +PROAIR HFA0.09 MG/AC IH
[2020-07-31 23:47] VITALS: BP 118/83; PULSE 102; TEMP 97.3
[2020-08-01] VITALS (10 sets, daily range): BP systolic 91–111; BP diastolic 33–66; PULSE 89–103; TEMP 97.7–97.9
--- NOTE | 2020-08-01 00:23 | NUR ---
IV placed to left wrist by this nurse x1 attempt-20g. Flushes well with good blood return. Tolerated well.
--- NOTE | 2020-08-01 00:50 | NUR ---
GOLDEN Pickens notified of recent HepXa result of 0.70. Order clarified to reduce rate per protocol instead of starting heparin at 800units/hr as previously ordered. Discussed with DANIELLE Bansal and 2 nurse verification completed.
--- NOTE | 2020-08-01 01:38 | NUR ---
Patient transferred to room 307 via [facility] from [facility] at 22:40 pm. Patient A/O x4. Patient denies chest pain upon arrival. Patient currently on O2 via NC. SPO2 97% on O2 via NC. Patient reports having SOB upon getting up and walking to the bathroom. Able to talk sentences without having too much SOA. Breathing slightly labored. Heparin drip started at 7ml/hr via left AC. IV fluid and IV Azithromycin given per JUN. Oriented patient to the room. NPO status maintained from midnight. Call light within reach. Patient denies any needs at this time.
--- NOTE | 2020-08-01 06:08 | NUR ---
Patient resting comfortably in bed at 0600. Patient denies any chest pain or SOB. Breathing even and unlabored. No acute distress noted at this time. Call light within reach. Patient denies any needs at this time.
[2020-08-01 07:11] LABS: HEMATOCRIT 42.3 % (42.0-52.0); HEMOGLOBIN 13.4 g/dl (13.5-18.0); MEAN CELL VOLUME 94 fl (80.0-100.0); MEAN CORPUSCULAR HEMOGLOBIN 30 pg (27.0-31.0); MEAN CORPUSCULAR HGB CONC 32 g/dl (33.0-37.0); MEAN PLATELET VOLUME 11.7 fl (7.4-10.4); PLATELET COUNT 131 K/mm3 (130-400); RED BLOOD COUNT 4.52 M/mm3 (4.20-5.60); REDCELL DISTRIBUTION WIDTH-CV 13.1 % (11.5-14.5)
[2020-08-01 07:19] LABS: ANION GAP 11 mmol/L (7-16); BLOOD UREA NITROGEN 39 mg/dL (9-20); CALCIUM 8.5 mg/dL (8.4-10.2); CARBON DIOXIDE 22 mmol/L (22-30); CHLORIDE 105 mmol/L (98-107); CREATININE, serum 1.25 (0.66-1.25); GLUCOSE 177 mg/dL (74-106); POTASSIUM 3.8 mmol/L (3.4-5.0); SODIUM 138 mmol/L (137-145)
--- NOTE | 2020-08-01 07:19 | NUR ---
Report with DANIELLE Bansal. Pt sitting up in bed, A&O x 4, denies pain or needs. Heparin infusing per orders. Call light in reach.
[2020-08-01 07:29] LABS: TROPONIN-I < 0.012 ng/mL (0.000-0.035)
[2020-08-01 07:34] LABS: BAND 7 % (0-10); LYMPHOCYTE 8 % (20.0-51.0); NEUTROPHILS 84 % (42.0-75.2); PLATELET ESTIMATE NORMAL (NORMAL)
--- NOTE | 2020-08-01 07:34 | NUR ---
Heparin infusion rate decreased to 600 units/hr (6 ml/hr) per HepXa level protocol. Pt denies further needs. Call light in reach.
[2020-08-01 10:22] LABS: CHOLESTEROL RISK RATIO 2.8
--- NOTE | 2020-08-01 12:27 | NUR ---
Pt to dental laboratory supervisor for procedure via bed.
--- NOTE | 2020-08-01 13:15 | NUR ---
First visit from the navy diver. No needs right now.
--- NOTE | 2020-08-01 13:45 | NUR ---
Pt back to room from medical lab tech instructor via bed, awake and alert, requesting food, denies pain or other needs at this time. POC for bedrest and removal of TR band reviewed with pt. Lunch tray ordered. Call light in reach.
--- NOTE | 2020-08-01 16:07 | NUR ---
Correction Officer Reformatory met with patient and patient's , Arti (ph#[phone]) to discuss discharge planning. Patient lives in [place] with his and sees Dr. Hathaway for primary care. Patient obtains medications from [facility] with no difficulties and does not use any DME at home. Patient reports independence with ADLS. Patient has Advance Directives in EMR which designate his Arti then his three children: Rolanda, Onofre, and Jonas. Discharge Plan: Home
--- NOTE | 2020-08-01 17:00 | NUR ---
5 mls deflated from TR band to right radial cath site, no s/s of bleeding after 5 minutes. Remaining 6 mls removed from band, again no s/s of bleeding after 5 minutes. TR band removed and bandaid placed over site. Call light in reach.
--- NOTE | 2020-08-01 17:32 | NUR ---
PT. SITTING IN BED, ALERT, TOLERATING PUREED DIET, PT. REPOSITIONED. PATIENT EXPRESSES NO FURTHER NEEDS. CALL LIGHT IN REACH.
--- NOTE | 2020-08-01 18:45 | NUR ---
Report with DANIELLE Perales. Pt resting in bed awaiting dinner, denies needs. Call light in reach.
--- NOTE | 2020-08-01 19:11 | NUR ---
Received report from Iman. Seen patient awake in bed. he states he's waiting for his dinner tray. No other needs at this time.
--- NOTE | 2020-08-01 21:00 | NUR ---
Assesment done. Patient is alert and oriented. He denies pain. Right radial site is clean, dry and intact with bandaid. On O2 at 2lpm via NC. Urinal at bedside. Call light within reach.
[2020-08-02] VITALS (8 sets, daily range): BP systolic 98–128; BP diastolic 47–68; PULSE 77–113; TEMP 97.4–97.8
--- NOTE | 2020-08-02 06:17 | NUR ---
Patient had uneventful night. He states he was able to sleep last night. Right radial site is clean, dry and intact. He denies pain.
[2020-08-02 06:37] LABS: BASO % 0.1 % (0.0-2.0); GRAN # 9.6 (1.4-6.5); HEMATOCRIT 37.8 % (42.0-52.0); HEMOGLOBIN 11.8 g/dl (13.5-18.0); LYMPH # 0.3 (1.2-3.4); MEAN CELL VOLUME 96 fl (80.0-100.0); MEAN CORPUSCULAR HEMOGLOBIN 30 pg (27.0-31.0); MEAN CORPUSCULAR HGB CONC 31 g/dl (33.0-37.0); MEAN PLATELET VOLUME 12.1 fl (7.4-10.4); MONO # 0.3 (0.1-0.6); MONO % 2.5 % (1.7-9.3); PLATELET COUNT 123 K/mm3 (130-400); RED BLOOD COUNT 3.94 M/mm3 (4.20-5.60); REDCELL DISTRIBUTION WIDTH-CV 13.5 % (11.5-14.5)
[2020-08-02 06:54] LABS: CALCIUM 8.2 mg/dL (8.4-10.2); CREATININE, serum 1.41 (0.66-1.25); POTASSIUM 3.8 mmol/L (3.4-5.0)
--- NOTE | 2020-08-02 09:15 | NUR ---
GOLDEN MIMS NOTIFIED THAT TELEMETRY IS REPORTING THE PATIENTS HEART RATE IS IN THE 150'S. EKG ORDERED BY GOLDEN.
--- NOTE | 2020-08-02 10:41 | NUR ---
PATIENT SHIFT ASSESSMENT COMPLETED AT THIS TIME. PATIENT SITTING UP IN BEDSIDE CHAIR. PATIENT DENYING PAIN. PATIENT REPORTS SOB WITH ACTIVITY. AM MEDICATIONS ADMINISTERED BY STUDENT NURSE. CALL LIGHT WITHIN REACH. PATIENT DENIES ANY NEEDS AT THIS TIME.
--- NOTE | 2020-08-02 14:01 | NUR ---
Primary nurse was assisted with [phone] patient care by [employer] student Mariann Moreno and [employer] instructor Nikia Zhou MSN, RN.
--- NOTE | 2020-08-02 18:31 | NUR ---
PATIENT RESTING IN ROOM. WILL REPORT OFF TO ONCOMING NURSE.
--- NOTE | 2020-08-02 21:45 | NUR ---
ALERT AND OX4. IV TO LT WRIST FLUSHED. ANTIBOTICS RUNNING PER ORDER. DENIES ANY PAIN, SOA, CHEST PAIN, DIZZY OR LIGHTHEADEDNESS. GOOD APPEIETE. ST ON TELE. AWAITING POSSIBLE DC TOMORROW. POC DISCUSSED. PT V\U. NEEDS MET.
[2020-08-03 04:07] VITALS: BP 100/60; PULSE 82; TEMP 97.7
--- NOTE | 2020-08-03 05:05 | NUR ---
RESTED THROUGH THE NIGHT WO INCIDENT. STEFANIATE BISI TODAY. NEEDS MET.
[2020-08-03 06:02] LABS: HEMOGLOBIN 11.8 g/dl (13.5-18.0); MEAN CELL VOLUME 93 fl (80.0-100.0); MEAN CORPUSCULAR HEMOGLOBIN 30 pg (27.0-31.0); MEAN CORPUSCULAR HGB CONC 32 g/dl (33.0-37.0); MEAN PLATELET VOLUME 11.6 fl (7.4-10.4); PLATELET COUNT 126 K/mm3 (130-400); RED BLOOD COUNT 3.95 M/mm3 (4.20-5.60); REDCELL DISTRIBUTION WIDTH-CV 13.5 % (11.5-14.5)
[2020-08-03 06:07] LABS: HEMATOCRIT 36.8 % (42.0-52.0)
[2020-08-03 06:16] LABS: CALCIUM 8.2 mg/dL (8.4-10.2); CREATININE, serum 1.22 (0.66-1.25); POTASSIUM 4.5 mmol/L (3.4-5.0)
[2020-08-03 06:26] LABS: BAND 3 % (0-10); LYMPHOCYTE 2 % (20.0-51.0); NEUTROPHILS 93 % (42.0-75.2); PLATELET ESTIMATE DECREASED (NORMAL)
--- NOTE | 2020-08-03 06:40 | NUR ---
awake and resting in bed, bedside shift report received from DANIELLE Knowles
[2020-08-03] MEDS ORDERED: LIPITOR20 MG PO (07:19)
[2020-08-03] MEDS ORDERED: ENTRESTO 24 MG1 EACH PO (07:19)
[2020-08-03] MEDS ORDERED: ASPIRIN E.C. 8181 MG PO (07:19)
[2020-08-03] MEDS ORDERED: COREG 3.123.125 MG/T PO (07:19)
[2020-08-03 08:00] VITALS: BP 100/67; PULSE 70; TEMP 97.5
--- NOTE | 2020-08-03 08:51 | NUR ---
full assessment completed, have reviewed assessment completed by student and in agreement with that assessment with exception of heart rate is regular rhythm with assessed, ambulating in whitt with cardiopulmonar for exercise oximetry, therapist states his O2 drops to 85% while ambulating, will ambulate with O2
--- NOTE | 2020-08-03 08:58 | NUR ---
pt ambulated 500-700 ft. spo2 on r/a was 85%. Spo2 on l LPM/NC was 92% with ambulation
[2020-08-03] MEDS ORDERED: MEDROL 4MG DOSPA4 MG PO (09:21)
[2020-08-03] MEDS ORDERED: OXYGEN NAS (09:23)
[2020-08-03 12:00] VITALS: BP 107/59; PULSE 80; TEMP 97.8
--- NOTE | 2020-08-03 12:30 | NUR ---
telemetry discontinued and INT discontinued by student nurse, discharge instructions given to patient and his , they verbalize understanding
--- NOTE | 2020-08-03 13:26 | NUR ---
Primary nurse was assisted with [phone] patient care by [employer] [employer] [facility] student Mariann Moreno and [employer] [employer] [facility] instructor Nikia Zhou MSN, RN.
--- NOTE | 2020-08-03 15:09 | NUR ---
Brick Grader attended clinical rounds with the team. The patient is to discharge home today, 08/03. The patient is independent. An exercise oximetry was ordered. The patient qualifies for 1L of oxygen with extertion. After rounds, ABEBA met with the patient to discuss DME choices. The patient chose [facility]. ABEBA faxed referral. Padilla zamora [facility] delivered the oxygen to the patient's room. There are no additional needs.
== END 2020-08-03 13:00 | disposition home or self-care (01) | DRG 280 ==
LOC: MEDICAL 20:25
PROVIDERS: Physician Assistant; Student in an Organized Health Care Education/Training Program; ADMIT Family Medicine
PROC: 4A023N7 Measurement of Cardiac Sampling and Pressure, Left Heart, Percutaneous Approach (ICD-10-PCS; principal; 2020-08-01)
PROC: B2111ZZ Fluoroscopy of Multiple Coronary Arteries using Low Osmolar Contrast (ICD-10-PCS; 2020-08-01)
DX: I21.4 Non-ST elevation (NSTEMI) myocardial infarction (principal); I50.21 Acute systolic (congestive) heart failure; J44.1 Chronic obstructive pulmonary disease with (acute) exacerbation; I42.8 Other cardiomyopathies; I50.30 Unspecified diastolic (congestive) heart failure; Z66 Do not resuscitate; Z85.118 Personal history of other malignant neoplasm of bronchus and lung; Z87.891 Personal history of nicotine dependence; Z20.822 Contact with and (suspected) exposure to COVID-19
CPT/HCPCS: 99223-AI; 99233-AI; 99239; C1769; J0456; J1644; J2250; J2920; J3010; J7030; J7050

== ENCOUNTER → 2020-08-01 | Outpatient (REF) ==
[~2020-08-01] MED LIST changes: +ASPIRIN E.C. 8181 MG PO; +BREZTRI AEROS10.7 GM IH; +COREG 3.123.125 MG/T PO; +ENTRESTO 24 MG1 EACH PO; +LIPITOR20 MG PO; +MASON NATURAL2000 IU PO; +MEDROL 4MG DOSPA4 MG PO; +OXYGEN NAS; +PHARMASSURE ZIN50 MG PO; +VITAMIN C500 MG PO
== END ==
LOC: ZLAB.WCH 09:35
DX: Z01.89 Encounter for other specified special examinations (principal)

== ENCOUNTER 2020-12-18 12:41 | Day surgery (SDC) | payer MEDICARE, BC ==
[~2020-12-18] VITALS: Ht 175.3 cm; Wt 63.5 kg
[2020-12-18] VITALS (7 sets, daily range): BP systolic 106–129; BP diastolic 49–77; PULSE 66–106; TEMP 97.6–98.1
[~2020-12-18 12:41] MED LIST changes: -BREZTRI AEROS10.7 GM IH; -MASON NATURAL2000 IU PO; -PHARMASSURE ZIN50 MG PO; -VITAMIN C500 MG PO
[2020-12-18 13:33] LABS: HEMATOCRIT 37.8 % (42.0-52.0); HEMOGLOBIN 12.2 g/dl (13.5-18.0); MEAN CELL VOLUME 95 fl (80.0-100.0); MEAN CORPUSCULAR HEMOGLOBIN 31 pg (27.0-31.0); MEAN CORPUSCULAR HGB CONC 32 g/dl (33.0-37.0); MEAN PLATELET VOLUME 11.2 fl (7.4-10.4); PLATELET COUNT 130 K/mm3 (130-400); RED BLOOD COUNT 3.98 M/mm3 (4.20-5.60); REDCELL DISTRIBUTION WIDTH-CV 11.9 % (11.5-14.5)
[2020-12-18] MEDS ORDERED: BREZTRI AEROS10.7 GM IH (13:37)
[2020-12-18] MEDS ORDERED: MASON NATURAL2000 IU PO (13:39)
[2020-12-18] MEDS ORDERED: VITAMIN C500 MG PO (13:39)
[2020-12-18] MEDS ORDERED: PHARMASSURE ZIN50 MG PO (13:39)
[2020-12-18 13:40] LABS: INR 1.1 (0.8-3.0); PROTHROMBIN TIME 11.7 SECONDS (9.7-12.8)
[2020-12-18 13:47] LABS: CALCIUM 9.2 mg/dL (8.4-10.2); CREATININE, serum 1.11 (0.66-1.25); POTASSIUM 4.3 mmol/L (3.4-5.0)
--- NOTE | 2020-12-18 15:22 | NUR ---
SEE MERGE FOR ALL MEDICATION ADMNISTRATION TIMES, INTRA AND POST SEDATION ASSESSMENTS
--- NOTE | 2020-12-18 18:30 | NUR ---
Patient arrived to Medical room 311 at this time, alert/oriented, vital signs stable, reports left chest sore , incision site dressing intact/ no signs of bleeding or hematoma, inflamation noted and ICE applied, left arm in sling immoblilizer, present at bedside, will continue to monitor
--- NOTE | 2020-12-18 21:24 | NUR ---
Patient is resting in bed, alert and oriented x 4, no complains of nausea or vomiting just some pain in the incition area. Patient is with 2 L O2 nasal canula. The incition is covered with gauze and paper tape. Has some ice on it. He is on tele. Meds provided. No further needs at this time. Call light within reach.
--- NOTE | 2020-12-18 22:00 | NUR ---
Dr. Bruno called regarding patient requesting pain meds- left chest ICD site with dressing dry and intact , edematous - Dr Bruno aware, order obtained for pain meds
[2020-12-19 00:48] VITALS: BP 99/54; PULSE 99; TEMP 99.3
[2020-12-19 04:45] VITALS: BP 122/86; PULSE 86; TEMP 97.7
--- NOTE | 2020-12-19 06:19 | NUR ---
Patient has had a calm night. Some discomfort in the ICD incition. Tylenol provided. No further needs, continue monitoring. Shift report to the day nurse will be given.
[2020-12-19 07:26] LABS: BASO % 0.3 % (0.0-2.0); EOS # 0.1 (0.0-0.7); EOS % 0.9 % (0-4.0); GRAN # 8.5 (1.4-6.5); GRAN % 83.1 % (42.2-75.2); HEMOGLOBIN 12.3 g/dl (13.5-18.0); LYMPH # 0.9 (1.2-3.4); LYMPH % 8.3 % (20.0-51.0); MEAN CELL VOLUME 96 fl (80.0-100.0); MEAN CORPUSCULAR HEMOGLOBIN 31 pg (27.0-31.0); MEAN CORPUSCULAR HGB CONC 32 g/dl (33.0-37.0); MEAN PLATELET VOLUME 11.5 fl (7.4-10.4); MONO # 0.7 (0.1-0.6); PLATELET COUNT 120 K/mm3 (130-400); RED BLOOD COUNT 3.98 M/mm3 (4.20-5.60); REDCELL DISTRIBUTION WIDTH-CV 12.1 % (11.5-14.5)
[2020-12-19 07:33] LABS: CALCIUM 8.9 mg/dL (8.4-10.2); CREATININE, serum 1.43 (0.66-1.25); POTASSIUM 4.5 mmol/L (3.4-5.0)
[2020-12-19 07:50] VITALS: BP 108/57; PULSE 85; TEMP 97.4
--- NOTE | 2020-12-19 07:50 | NUR ---
has had breakfast and tolerated well, up to bathroom independently, full assessment completed, see interventions for further info, area around ICD placement site with gauze and is CD&I, has mod amount swelling at site, HOB elevated and ice pack in place, sling to left arm is also in place, denies pain or needs
--- NOTE | 2020-12-19 10:00 | NUR ---
up and about in room independently, was in and dressing removed, incision CD&I, at beside now
[2020-12-19] MEDS ORDERED: CEPHALEXIN500 M1 PO (10:37)
--- NOTE | 2020-12-19 11:00 | NUR ---
discharge instructions given to he and his , verbalizes understanding
--- NOTE | 2020-12-19 11:19 | NUR ---
discharged per WC
--- NOTE | 2020-12-19 12:28 | NUR ---
First visit from the file conversion operator. No needs right now.
== END 2020-12-19 11:19 | disposition home or self-care (01) ==
LOC: COL.CAR 12:41 → MEDICAL 18:36 → COL.CAR 12-19 11:19
PROVIDERS: Internal Medicine Cardiovascular Disease
DX: I42.0 Dilated cardiomyopathy (principal); I50.20 Unspecified systolic (congestive) heart failure; I44.7 Left bundle-branch block, unspecified; I08.1 Rheumatic disorders of both mitral and tricuspid valves; J44.9 Chronic obstructive pulmonary disease, unspecified; Z99.81 Dependence on supplemental oxygen; Z87.891 Personal history of nicotine dependence; Z79.82 Long term (current) use of aspirin; Z79.899 Other long term (current) drug therapy
CPT/HCPCS: OP; C1769; C1777; C1882; C1894; C1898; C1900; J0690; J2250; J2704; J3010; J7030; Q9967

== ENCOUNTER 2021-01-27 07:59 | Emergency (ER) | payer MEDICARE, BC ==
[~2021-01-27] VITALS: Ht 175.3 cm; Wt 63.6 kg
[~2021-01-27 07:59] MED LIST changes: +BREZTRI AEROS10.7 GM IH; +MASON NATURAL2000 IU PO; +PHARMASSURE ZIN50 MG PO; +VITAMIN C500 MG PO
[2021-01-27 08:19] VITALS: TEMP 97.8
[2021-01-27 08:57] LABS: STREP SCREEN NEGATIVE
[2021-01-27 09:50] VITALS: BP 132/80; PULSE 64
== END 2021-01-27 09:50 | disposition home or self-care (01) ==
LOC: COL.ER 07:59
PROVIDERS: Personal Emergency Response Attendant
DX: J02.9 Acute pharyngitis, unspecified (principal); J44.9 Chronic obstructive pulmonary disease, unspecified; I50.20 Unspecified systolic (congestive) heart failure; Z79.51 Long term (current) use of inhaled steroids; Z79.899 Other long term (current) drug therapy; Z79.82 Long term (current) use of aspirin

== ENCOUNTER → 2021-03-14 | Outpatient (CLI) | payer MEDICARE, BC | LOC: COL.RAD 09:42 | DX: Z12.2 Encounter for screening for malignant neoplasm of respiratory organs (principal); J45.909 Unspecified asthma, uncomplicated; Z87.891 Personal history of nicotine dependence ==

== ENCOUNTER 2021-06-11 08:29 | Day surgery (SDC) | payer MEDICARE, BC ==
[~2021-06-11] VITALS: Ht 175.3 cm; Wt 61.9 kg
[2021-06-11 09:17] VITALS: BP 112/72; PULSE 77; TEMP 97.6
--- NOTE | 2021-06-11 09:42 | NUR ---
Initial visit; Patient thanked Tool Checker for offering prayer and God's blessings prior to his surgical procedure. Tool Checker offered encouragement and rapid and thorough healing.
[2021-06-11 11:40] VITALS: BP 106/43; PULSE 61; TEMP 97.2
--- NOTE | 2021-06-11 11:40 | NUR ---
PT RETUNED TO ROOM VIA CART. ALERT AND ORIENTED. POSTOP VITALS STARTED. PT ON 1L, SAME AT HOME O2. POSTOP VITALS STARTED. COFFEE AND WHITE TOAST PROVIDED. BROUGHT TO BEDSIDE. INSTRUCTED TO USE CALL LIGHT BEFORE GETTING UP.
[2021-06-11 11:55] VITALS: BP 104/67; PULSE 71
[2021-06-11 12:10] VITALS: BP 107/62; PULSE 73
--- NOTE | 2021-06-11 12:10 | NUR ---
1155 PT TOLERATING FOOD AND DRIBNK WELL. DENIES PAIN OR NAUSEA. PT REPORTS FEELING EQUAL SENSATION IN FEET BILATERALLY, BUT STATES "RIGHT LEG STILL FEELS NOT RIGHT". 1210 VITALS STABLE ON HOME O2. PT DENIES PAIN OR NAUSEA. PT REQUEST MORE TIME BEFORE GETTING UP TO BATHROOM. REVIEWED DISCHARGE INSTRUCTIONS AND EDUCATION MATERIAL. PT AND VERBALIZE UNDERSTANDING.
--- NOTE | 2021-06-11 13:55 | NUR ---
1230 PT REPORTS NORMAL SENSATION IN LOWER EXTREMITIES. PT ABLE TO LIFT BOTH LEGS EVENLY HIGH OFF OF BED. PT KNEES GAVE OUT WHEN TRYING TO STAND UP FROM BED. PT BACK IN BED, ALLOWED TO REST AND URINAL PROVIDED. 1300 PT REPORTS NORMAL SENSATION IN LOWER EXTREMITIES. ABLE TO LIFT BOTH LEGS EVENLY HIGH ABOVE BED. PT REPORTS NUMBNESS IN BOTTOM. PT ALLOWED TO REST IN BED LONGER. 1330 PT REPORTS NORMAL SENSATION AND ABLE TO LIFT BOTH LEGS EVENLY. PT ABMULATED TO TOILET USING WALKER AND RN ASSIST. UNABLE TO VOID. PT BACK IN BED, URINAL AND CALL LIGHT IN REACH. 1340 BLADDER SCANNED, 137ML. WATER AND COFFEE PROVIDED. IV FLUIDS INCREASED. 1355 WATER AND TOAST PROVIDED.
--- NOTE | 2021-06-11 14:20 | NUR ---
1407 PT REPORTS DIAGNOSIS OF CHF. 1415 CHF, WEAKNESS AND PT UNABLE TO VOID REPORTED TO MAYTE SU CRNA. NEW ORDERS RECIEVED.
[2021-06-11 15:30] VITALS: BP 139/62; PULSE 65
--- NOTE | 2021-06-11 17:15 | NUR ---
1530 PT AMBULATED WITH WALKER AND RN ASSIST ENTIRE LENGTH OR HALLWAY AND BACK. PT TO RESTROOM, UNABLE TO VOID. BLADDER SCAN SHOWS 799ML IN BLADDER. PT REPORTS BEING OUT OF BREATH, VITALS STABLE O2 100% ON 1L O2. 1600 PT TO RESTROOM. PEPPERMINT OIL IN TOILET, WARM BLANKET ACROSS LOWER ABDOMEN, WATER PROVIDED. PT REPORTS RUNNING WARM WATER OVER DEVIN AREA. STILL UNABLE TO VOID. 1625 DR. MASTERS CALLED, NEW ORDER TO PLACE AND SEND PT HOME WITH 16F CATHETER IN PLACE. 1645 EXPLAINED CATH PROCEDURE TO PT, PT AGREES TO PROCEDURE. PLACED PT IN COMFORTABLE POSITION. PERFORMED URINARY CATHETER PROCEDURE MAINTAINING STERILE TECHNIQUE, INFLATED BALLOON WITH 10ML STERILE WATER TO HOLD CATHETER IN PLACE, SECURED USING STATLOCK. DRAINED 600 ML OF DARK RED URINE FROM BAG. REPLACED WITH LEG BAG FOR PT CONVENIENCE. EDUCATED PT AND ON PROPER CATHETER CARE. SENT HOME LARGER BAG, CYLINDER AND ALCOHOL WIPES. ASSISTED PT TO DRESS 1730 TRANSFERED PT VIA WHEEL CHAIR TO PERSONAL VEHICLE TO BE DRIVEN HOME BY .
== END 2021-06-11 17:30 | disposition home or self-care (01) ==
LOC: SDCO 08:29
DX: C67.2 Malignant neoplasm of lateral wall of bladder (principal); C67.9 Malignant neoplasm of bladder, unspecified; J43.9 Emphysema, unspecified; F17.290 Nicotine dependence, other tobacco product, uncomplicated; Z85.118 Personal history of other malignant neoplasm of bronchus and lung; Z90.5 Acquired absence of kidney; Z79.899 Other long term (current) drug therapy; Z85.53 Personal history of malignant neoplasm of renal pelvis; Z79.82 Long term (current) use of aspirin; Z95.810 Presence of automatic (implantable) cardiac defibrillator; Z99.81 Dependence on supplemental oxygen
CPT/HCPCS: A4314; J0690; J2250; J2405; J2704; J3010; J7120; Q9967

== ENCOUNTER 2021-11-28 07:57 | Outpatient (CLI) | payer MEDICARE, BC ==
--- NOTE | 2021-11-28 08:30 | NUR ---
pt here for fistulogram under fluroscopy. pt amb. with portable 02 and with him, waits in eu 12, Dr Blackmon into see pt and explain procedure to be done today in radiology under fluroscopy and a consent signed. Pt has small 4x4 over site to lower abd. with yellow drainage noted. 117/59, pulse 62, 100% sats with 2L/min, 97.7. pt had procedure done in radiology and was discharged at [address] Blackmon, with no other tests ordered.
== END 2021-12-03 16:25 ==
LOC: COL.CAR 07:57
DX: C67.8 Malignant neoplasm of overlapping sites of bladder (principal); L02.211 Cutaneous abscess of abdominal wall
CPT/HCPCS: Q9967

== ENCOUNTER 2021-12-16 11:15 | Inpatient (IN) | payer MEDICARE, BC ==
[2021-12-16] VITALS (82 sets, daily range): BP systolic 63–133; BP diastolic 38–83; PULSE 74–135; TEMP 97.6–98.4; O2SAT 93–100
[~2021-12-16] VITALS: Ht 175.3 cm; Wt 141.3 kg
[2021-12-16] MEDS ORDERED: METAMUCIL0.52 G1 PO (11:58)
[2021-12-16] MEDS ORDERED: COLACE 100100 MG/CAP PO (11:58)
[2021-12-16] MEDS ORDERED: AMOXICILLIN 8751 TAB PO (11:59)
--- NOTE | 2021-12-16 16:29 | NUR ---
Pt recently arrived to the floor from [facility]. He is alert and oriented with pain complaints of 3/10 at rest. Pt did cough shortly after arrival with pain complaints 5/10. SCDs on bilaterally. Fluids infusing to IV in his right hand. Midline incision with dressing. Drainage noted to bottom side of dressing which is marked. Compression dressing to left wrist from arterial line which is CDI. Pt is on 1L of O2 with sats 97%. Heart rate regular. Pts is at bedside. Educated on diet which is clear liquids with no straws. Oriented pt and to the room. No other needs. Gave pt ice water at this time. Will continue to monitor
[2021-12-16 17:41] LABS: CALCIUM 8.9 mg/dL (8.4-10.2); CREATININE, serum 1.23 mg/dL (0.72-1.25); POTASSIUM 4.8 mmol/L (3.5-4.5)
--- NOTE | 2021-12-16 18:20 | NUR ---
Pt heart rate is increased to low 100's. While I was in room assessing pt, heart rate up to 130. Dr Cuevas notified. New orders received and respiratory called for EKG
[2021-12-16 18:55] LABS: MEAN CELL VOLUME 95 fl (80.0-100.0); MEAN CORPUSCULAR HGB CONC 31 g/dl (33.0-37.0); MEAN PLATELET VOLUME 11.5 fl (7.4-10.4); PLATELET COUNT 169 K/mm3 (130-400); RED BLOOD COUNT 3.27 M/mm3 (4.20-5.60); REDCELL DISTRIBUTION WIDTH-CV 14.2 % (11.5-14.5)
[2021-12-16 18:56] LABS: HEMATOCRIT 31.2 % (42.0-52.0); HEMOGLOBIN 9.6 g/dl (13.5-18.0); MEAN CORPUSCULAR HEMOGLOBIN 29 pg (27-31)
--- NOTE | 2021-12-16 19:00 | NUR ---
BEGINNING OF SHIFT NOTE: PATIENT SITTING UP IN BED EATING DINNER. PATIENT DRESSING NOTED TO HAVE DRAINAGE WHICH IS CIRCLED. PATIENT DENIES CONCERNS OR REQUESTS.
[2021-12-16 20:51] LABS: BAND 10 % (0-10); LYMPHOCYTE 1 % (20.0-51.0); METAMYELOCYTE 1 % (0-0); NEUTROPHILS 83 % (42.0-75.2)
[2021-12-16 20:52] LABS: PLATELET ESTIMATE NORMAL (NORMAL)
[2021-12-16 20:53] LABS: HYPOCHROMIA 3+
[2021-12-16 21:48] LABS: BILIRUBIN,TOTAL 0.5 mg/dL (0.2-1.2)
--- NOTE | 2021-12-16 22:29 | NUR ---
Received report from DANIELLE Toledo.
--- NOTE | 2021-12-16 22:31 | NUR ---
Patient arrives to ICU room 7 via medical bed. Patient transferred to ICU bed via draw sheet. Patient is alert and oriented; he denies any pain or discomfort. Initial vitals within normal limits; he arrives receiving 1L oxygen via nasal cannula, tolerating well. Zosyn infusing upon arrival. No other medications or dips infusing at this time. ABD present to midline abdominal incision. Some serosanguineous drainage noted to dressing. Patient has urostomy to the RUQ that is draining yellow urine with sediment. Hospitalist, Nelia, aware of patient's arrival to unit and is at bedside.
--- NOTE | 2021-12-16 22:55 | NUR ---
APPROX 2044 PATIENT VITALS TAKEN AND BLOOD PRESSURE NOTED TO BE 63/48. RECHECKED BLOOD PRSSURE MANUALLY AND BLOOD PRESSURE REMAINED 60/40. PATIENT REMAINS TACHYCARDIC AND PACEMAKER INTEROGATION PERFORMED ORDERED. PROVIDER NOTIFIED AND ORDERS RECEIVED. PATIENT GIVEN ORDERED BOLUS OF FLUIDS AND ANTIBIOTICS. PATIENT BLOOD PRESSURE NOTED TO BE 90/49 UPON LEAVING FLOOR FOR ORDERED CT SCAN AND TRANSFER TO ICU. HANDOFF GIVEN TO MANOLO IN ICU.
[2021-12-17] VITALS (708 sets, daily range): BP systolic 88–156; BP diastolic 51–108; PULSE 70–123; TEMP 97.6–98.4; O2SAT 64–98
[2021-12-17 01:20] LABS: COLLECTION METHOD CATHETER
[2021-12-17 03:29] LABS: MUCOUS Present (NOT PRESENT); SQUAMOUS EPITHELIAL None Seen /hpf (0-10); URINE BACTERIA None Seen /hpf (NONE SEEN)
[2021-12-17 03:31] LABS: URINE APPEARANCE Clear (CLEAR/HAZY); URINE COLOR Yellow (YELLOW); URINE GLUCOSE Negative (NEGATIVE); URINE KETONE Negative (NEGATIVE); URINE NITRATE Negative (NEGATIVE); URINE PROTEIN(semi-quant) Negative (NEGATIVE); URINE UROBILINOGEN 0.2 E.U/dL (0.2-1.0)
[2021-12-17 03:32] LABS: URINE BLOOD TRACE-INTACT (NEGATIVE)
[2021-12-17 06:36] LABS: BASO % 0.2 % (0.0-2.0); GRAN # 11.2 K/mm3 (1.4-6.5); GRAN % 86.4 % (42.2-75.2); LYMPH # 0.8 K/mm3 (1.2-3.4); LYMPH % 6.2 % (20.0-51.0); MEAN CELL VOLUME 95 fl (80.0-100.0); MEAN CORPUSCULAR HGB CONC 31 g/dl (33.0-37.0); MEAN PLATELET VOLUME 11.3 fl (7.4-10.4); MONO # 0.8 K/mm3 (0.1-0.6); MONO % 6.3 % (1.7-9.3); PLATELET COUNT 166 K/mm3 (130-400); RED BLOOD COUNT 2.62 M/mm3 (4.20-5.60); REDCELL DISTRIBUTION WIDTH-CV 14.2 % (11.5-14.5)
[2021-12-17 06:44] LABS: CALCIUM 8.3 mg/dL (8.4-10.2); CREATININE, serum 2.17 mg/dL (0.72-1.25)
[2021-12-17 06:48] LABS: POTASSIUM 6.5 mmol/L (3.5-4.5)
[2021-12-17 06:49] LABS: HEMATOCRIT 24.8 % (42.0-52.0); HEMOGLOBIN 7.6 g/dl (13.5-18.0); MEAN CORPUSCULAR HEMOGLOBIN 29 pg (27-31)
--- NOTE | 2021-12-17 07:51 | NUR ---
REPORT RECEIVED FROM DANIELLE BERTRAND; PATIENT CURRENTLY RESTING IN BED AFTER RECEIVING NATHALIA FOR PAIN THIS MORNING. VITAL SIGNS ARE WITHIN NORMAL LIMITS WITH THE EXCEPTION OF BLOOD PRESSURE, WHICH HAS BEEN LOWER WITH SYSTOLICS IN THE 90S-100S, HOWEVER, MAP HAS BEEN MAINTAINED ABOVE 65 AND NO PRESSORS HAVE NEEDED TO BE STARTED. PATIENT HAS LR RUNNING THROUGH A PERIPHERAL LINE.
[2021-12-17 10:33] LABS: CALCIUM 7.9 mg/dL (8.4-10.2); CREATININE, serum 2.29 mg/dL (0.72-1.25)
[2021-12-17 10:36] LABS: POTASSIUM 5.8 mmol/L (3.5-4.5)
--- NOTE | 2021-12-17 11:45 | NUR ---
PATIENT REFUSING TO USE INCENTIVE SPIROMETER HE STATES IT "HURTS TOO MUCH".
--- NOTE | 2021-12-17 15:49 | NUR ---
worker's compensation claims examiner met with patient and spouse to complete initial assessment. Patient lives with spouse at home. Patient's primary care provider is Dr Hathaway and patient has a living will and durable power of assistant attorney general for health care in the electronic record. Will await therapy recommendations for disposition recommendation. Patient is moving out of ICU to the surgical unit today.
[2021-12-17 20:02] LABS: HEMATOCRIT 25.4 % (42.0-52.0); HEMOGLOBIN 8.2 g/dl (13.5-18.0)
--- NOTE | 2021-12-17 21:52 | NUR ---
Patient assessed around 1930. Complained of pain to abdomen, and given pain medications as requested. Patient complaining of SOB, increases with exertion. On oxygen at 2 L/min via NC. LS coarse crackles upper lobes, diminished lower. Patient has moist, productive cough. Does have CHF and had IV fluids running at 75 ml/hr. Stopped fluids and talked to GOLDEN Pickens, ok to D/C fluids. Patient's dressing to abdomen CDI. Urostomy to right abdomen, clear yellow urine. BS active, patient is passing gas, no BM. Hemoglobin back at 8.2, Potassium at 5.1. Updated GOLDEN Pickens. Patient in bed with call light within reach. Continues on IV ABX per orders. Voices no questions, needs, or concerns at this time.
[2021-12-18 00:01] VITALS: BP 123/59; PULSE 97; TEMP 98.1
[2021-12-18 03:39] VITALS: BP 125/68; PULSE 96; TEMP 98
--- NOTE | 2021-12-18 06:21 | NUR ---
Patient has been getting up and going to bathroom to try and have bowel movement. No BM, but is passing gas. Continues on IV ABX per orders. Patient took off frederick bag from Urostomy to help with independence with movement, but continued to let staff know when it needed emptied. Given PRN pain medication as requested during the night. Voices no further questions, needs, or concerns at this time. In bed with call light within reach.
[2021-12-18 06:29] LABS: MEAN CELL VOLUME 92 fl (80.0-100.0); MEAN CORPUSCULAR HGB CONC 33 g/dl (33.0-37.0); MEAN PLATELET VOLUME 11.4 fl (7.4-10.4); PLATELET COUNT 151 K/mm3 (130-400); REDCELL DISTRIBUTION WIDTH-CV 14.6 % (11.5-14.5)
[2021-12-18 06:41] LABS: HEMATOCRIT 23.8 % (42.0-52.0); HEMOGLOBIN 7.8 g/dl (13.5-18.0); MEAN CORPUSCULAR HEMOGLOBIN 30 pg (27-31)
[2021-12-18 06:42] LABS: CALCIUM 8.6 mg/dL (8.4-10.2); CREATININE, serum 2.23 mg/dL (0.72-1.25)
[2021-12-18 07:20] VITALS: BP 120/59; PULSE 88; TEMP 97.8
--- NOTE | 2021-12-18 09:18 | NUR ---
Initial visit; Patient doing well and his and System Configuration Specialist agreed on what a good Dr. Morel has. System Configuration Specialist offered God's blessings and hope for healing rapidly and thoroughly.
[2021-12-18 12:27] VITALS: BP 119/66; PULSE 103; TEMP 98.5
--- NOTE | 2021-12-18 13:10 | NUR ---
PATIENT ALERT AND ORIENTED X4. VSS. PATIENT HERE FOR EXPLORATORY LAP WITH SMALL BOWEL RESECTION. PATIENT ON 2L PER NC. PATIENT REPORTS PAIN 4/10, REQUESTS PAIN MEDICATION. MIDLINE INCISION DRESSING CHANGED. UROSTOMY BAG CHANGED. PATIENT RESTING IN BED WITH CALL LIGHT NEAR.
[2021-12-18 16:00] VITALS: BP 115/56; PULSE 97
[2021-12-18 20:15] VITALS: BP 118/56; PULSE 97; TEMP 98.2
--- NOTE | 2021-12-18 20:48 | NUR ---
PT A&OX4 RESTING IN BED. MEDS GIVEN AND ASSESSMENT COMPLETE. VS STABLE AND TELE IN PLACE.RT HAND INT PATENT. PT DENIES PN. PT BLIND IN LEFT EYE. ABDOMINAL DRESSING CDI. UROSTOMY WITH URINE OUTPUT. SCDS APPLIED TO BLE. 02 AT 4L NC. NO NEEDS AT THIS TIME.
[2021-12-18 22:14] LABS: CREATININE, serum 1.93 mg/dL (0.72-1.25); FRACTIONAL EXCRETION OF NA+ 1.32 %
[2021-12-19 00:20] VITALS: BP 112/54; PULSE 90; TEMP 97.9
[2021-12-19 04:53] VITALS: BP 107/50; PULSE 80; TEMP 98.2
[2021-12-19 07:24] VITALS: BP 113/51; PULSE 80; TEMP 98.5
[2021-12-19 09:19] LABS: HEMATOCRIT 22.4 % (42.0-52.0); HEMOGLOBIN 7.1 g/dl (13.5-18.0)
[2021-12-19 09:28] LABS: CALCIUM 8.6 mg/dL (8.4-10.2); CREATININE, serum 1.8 mg/dL (0.72-1.25); POTASSIUM 4.1 mmol/L (3.5-4.5)
[2021-12-19 12:00] VITALS: BP 128/64; PULSE 91; TEMP 98.1
--- NOTE | 2021-12-19 13:28 | NUR ---
SW met with patient to follow up on additional intake information. Patient states that he is independent with her ADL's and does not utilize any DME to assist with mobility. Patient reports that he is on 1L of NC oxygen at home that is managed through [facility]. Patient does not have any home health established or outpatient PT.
[2021-12-19 16:20] VITALS: BP 140/71; PULSE 121; TEMP 98.5
[2021-12-19 18:11] LABS: HEMATOCRIT 23.6 % (42.0-52.0); HEMOGLOBIN 7.6 g/dl (13.5-18.0)
--- NOTE | 2021-12-19 18:17 | NUR ---
PATIENT'S ABDOMEN APPEARS TO BE SLIGHTLY DISTENDED AND IS EXPERIENCING INCREASED PAIN. PATIENT REPORTS PASSING GAS AND IS TOLERATING FOOD. PATIENT HAS ACTIVE BOWEL SOUNDS. PATIENT HAS NOT HAD A BOWEL MOVEMENT IN A FEW DAYS. CALLED HOSPITALIST TO REQUEST MIRALAX.
[2021-12-19 20:19] VITALS: BP 123/52; PULSE 97; TEMP 98.5
--- NOTE | 2021-12-19 20:53 | NUR ---
PT A&OX4 RESTING IN BED. PT DENIES PN. ASSESSMENT COMPLETE AND MEDS GIVEN. INT TO RH PATENT. O2 3L NC. UROSTOMY WITH YELLOW URINE OUTPUT. TELE IN PLACE. ABDOMINAL DRESSING CDI. NO NEEDS AT THIS TIME. CALL LIGHT WITHIN REACH.
[2021-12-20] VITALS (7 sets, daily range): BP systolic 103–134; BP diastolic 52–62; PULSE 74–106; TEMP 97.6–98.9
--- NOTE | 2021-12-20 16:45 | NUR ---
PT A/OX4, WITH INT AT RIGHT HAND, WITH OXYGEN VIA NASAL PRONG AT 3LPM, WITH UROSTOMY DRAINING CLEAR YELLOW URINE, WITH ABDOMINAL INCISION CDI, ENCOURAGED TO USE THE INCENTIVE SPIROMETER DURING WAKING HOURS AND THE RELEVANCE OF USING IT, STILL WITH TELE PACED RHYTHM, OXY GIVEN AT 0415 FOR HIS ABDOMINAL PAIN, WILL CONTINUE TO MONITOR.
[2021-12-21] VITALS (8 sets, daily range): BP systolic 111–140; BP diastolic 55–74; PULSE 78–96; TEMP 98.3–98.9
--- NOTE | 2021-12-21 05:48 | NUR ---
pt on baseline 3L O2 per NC, dressing to abd CDI, urostomy draining clear yellow urine, pt able to drain bag as needed. no pain meds requested this shift, scheduled tylenol given @HS, refused am dose. up ad rm in room. reports bm last evening.
[2021-12-21 06:40] LABS: BASO % 0.4 % (0.0-2.0); EOS # 0.3 K/mm3 (0.0-0.7); EOS % 5.9 % (0.0-4.0); GRAN # 3.9 K/mm3 (1.4-6.5); GRAN % 71.8 % (42.2-75.2); LYMPH # 0.6 K/mm3 (1.2-3.4); LYMPH % 11.2 % (20.0-51.0); MEAN CELL VOLUME 97 fl (80.0-100.0); MEAN CORPUSCULAR HGB CONC 31 g/dl (33.0-37.0); MEAN PLATELET VOLUME 10.8 fl (7.4-10.4); MONO # 0.5 K/mm3 (0.1-0.6); MONO % 9.6 % (1.7-9.3); PLATELET COUNT 148 K/mm3 (130-400); RED BLOOD COUNT 2.12 M/mm3 (4.20-5.60); REDCELL DISTRIBUTION WIDTH-CV 14.8 % (11.5-14.5)
[2021-12-21 06:53] LABS: CALCIUM 8.6 mg/dL (8.4-10.2); CREATININE, serum 1.41 mg/dL (0.72-1.25); MAGNESIUM 1.9 mg/dL (1.6-2.6); POTASSIUM 3.6 mmol/L (3.5-4.5)
[2021-12-21 06:56] LABS: HEMATOCRIT 20.6 % (42.0-52.0); HEMOGLOBIN 6.3 g/dl (13.5-18.0); MEAN CORPUSCULAR HEMOGLOBIN 30 pg (27-31)
--- NOTE | 2021-12-21 07:05 | NUR ---
Dr Snell notified per voicemail of am Hgb 6.3
--- NOTE | 2021-12-21 09:00 | NUR ---
Pt doing well this morning. PRN pain medication given. at bedside. They are hopeful to get to go home today. Informed them of the low hemoglobin, so would need to see what physician says. Pt does not have any complaints of feeling dizzy or lightheaded when he is up. Having loose stool, does not report feeling as if there is any blood in it. Hat placed in toilet and educated pt to notify nursing when he goes so it can be observed. No other needs, will continue to monitor
--- NOTE | 2021-12-21 12:26 | NUR ---
Dr Snell and Dr Cuevas have both been in to see pt. Order to give one unit of blood. Pt and aware. Blood started at this time. Educated on signs and symptoms of reaction. Blood started at 60ml/hr at this time. Pt is currently eating his lunch. Pt does have a slight cough and lungs sounds were coarse expiratory. Pt reports that this cough is normal for him.
[2021-12-21] MEDS ORDERED: FERROUS SU325 MG/TAB PO (12:44)
[2021-12-21] MEDS ORDERED: PROTONIX 40MG T40 MG PO (12:45)
--- NOTE | 2021-12-21 13:00 | NUR ---
Blood was increased to 120ml\hr following the 15 minutes.
--- NOTE | 2021-12-21 15:12 | NUR ---
Pt blood has finished. Tolerated with no signs of reaction. Assisted pt to the restroom, he did have a BM which was light brown/shipman in color. Instructed that he can get dressed from waste down if he would like. Informed them that lab would be up for one more draw prior to him leaving. No questions at this time
[2021-12-21 15:52] LABS: HEMATOCRIT 27.6 % (42.0-52.0); HEMOGLOBIN 8.8 g/dl (13.5-18.0)
--- NOTE | 2021-12-21 16:13 | NUR ---
Lab has been resulted. Reviewed discharge instructions with pt and his to include follow up appointments and prescriptions. INT removed from left hand and pt escorted out
== END 2021-12-21 16:15 | disposition home or self-care (01) | DRG 856 ==
LOC: SDCO 11:15 → SURG 16:00 → SDCO 21:12 → ICU 21:13 → SURG 21:13 → ICU 23:03 → SURG 12-17 15:10
PROVIDERS: Internal Medicine; Registered Nurse; Student in an Organized Health Care Education/Training Program; ADMIT Urology
PROC: 0DBB0ZZ Excision of Ileum, Open Approach (ICD-10-PCS; principal; 2021-12-16 13:30)
PROC: 0DB80ZZ Excision of Small Intestine, Open Approach (ICD-10-PCS; 2021-12-16 13:30)
PROC: 30233N1 Transfusion of Nonautologous Red Blood Cells into Peripheral Vein, Percutaneous Approach (ICD-10-PCS; 2021-12-17)
DX: T81.41XA Infection following a procedure, superficial incisional surgical site, initial encounter (principal); J96.21 Acute and chronic respiratory failure with hypoxia; N17.0 Acute kidney failure with tubular necrosis; J95.812 Postprocedural air leak; Z66 Do not resuscitate; I42.8 Other cardiomyopathies; K63.2 Fistula of intestine; I50.22 Chronic systolic (congestive) heart failure; I97.191 Other postprocedural cardiac functional disturbances following other surgery; K91.89 Other postprocedural complications and disorders of digestive system; K56.7 Ileus, unspecified; J98.11 Atelectasis; C78.4 Secondary malignant neoplasm of small intestine; C79.11 Secondary malignant neoplasm of bladder; J44.9 Chronic obstructive pulmonary disease, unspecified; I95.81 Postprocedural hypotension; E87.5 Hyperkalemia; I11.0 Hypertensive heart disease with heart failure; I44.7 Left bundle-branch block, unspecified; Y83.8 Other surgical procedures as the cause of abnormal reaction of the patient, or of later complication, without mention of misadventure at the time of the procedure; K21.9 Gastro-esophageal reflux disease without esophagitis; K44.9 Diaphragmatic hernia without obstruction or gangrene; D64.89 Other specified anemias; Z85.118 Personal history of other malignant neoplasm of bronchus and lung; I25.2 Old myocardial infarction; Z95.0 Presence of cardiac pacemaker; Z87.19 Personal history of other diseases of the digestive system; Z99.81 Dependence on supplemental oxygen; Z79.82 Long term (current) use of aspirin; Z85.53 Personal history of malignant neoplasm of renal pelvis; Y92.89 Other specified places as the place of occurrence of the external cause; Z23 Encounter for immunization
CPT/HCPCS: A9284; C9113; J0690; J1100; J1170; J1815; J2405; J2543; J2704; J2710; J3010; J3475; J7040; J7120; P9016; Q9967

== ENCOUNTER → 2022-01-09 | Outpatient (CLI) | payer MEDICARE, BC ==
[~2022-01-09] MED LIST changes: +AMOXICILLIN 8751 TAB PO; +CEFTIN500 MG PO; +COLACE 100100 MG/CAP PO; +FERROUS SU325 MG/TAB PO; +METAMUCIL0.52 G1 PO; +PROTONIX 40MG T40 MG PO; +TOPROL XL 25MG25 MG PO
[2022-01-13] VITALS (33 sets, daily range): O2SAT 99–100
[2022-01-15] VITALS (171 sets, daily range): O2SAT 96–100
== END ==
LOC: COL.RAD 08:02
DX: C67.9 Malignant neoplasm of bladder, unspecified (principal); J43.9 Emphysema, unspecified
CPT/HCPCS: Q9967

== ENCOUNTER 2022-01-12 14:15 | Inpatient (IN) | payer MEDICARE, BC ==
[2022-01-12] VITALS (281 sets, daily range): BP systolic 139–141; BP diastolic 72–80; PULSE 96–105; TEMP 98–98.5; O2SAT 95–100
[~2022-01-12] VITALS: Ht 175.3 cm; Wt 60.9 kg
[~2022-01-12 14:15] MED LIST changes: -CEFTIN500 MG PO; -TOPROL XL 25MG25 MG PO
[2022-01-12 14:51] LABS: MEAN CELL VOLUME 97 fl (80.0-100.0); MEAN CORPUSCULAR HGB CONC 30 g/dl (33.0-37.0); MEAN PLATELET VOLUME 11.2 fl (7.4-10.4); PLATELET COUNT 421 K/mm3 (130-400); RED BLOOD COUNT 3.09 M/mm3 (4.20-5.60); REDCELL DISTRIBUTION WIDTH-CV 14.8 % (11.5-14.5)
[2022-01-12 15:04] LABS: ALBUMIN 3.1 gm/dL (3.4-4.8); CALCIUM 9.3 mg/dL (8.4-10.2); CREATININE, serum 1.32 mg/dL (0.72-1.25); PHOSPHOROUS 6.2 mg/dL (2.3-4.7); POTASSIUM 4.8 mmol/L (3.5-4.5)
[2022-01-12 15:14] LABS: TROPONIN-I 0.036 ng/mL (0.00-0.033)
[2022-01-12 15:20] LABS: HEMATOCRIT 30.1 % (42.0-52.0); MEAN CORPUSCULAR HEMOGLOBIN 29 pg (27-31)
[2022-01-12 15:26] LABS: BAND 3 % (0-10); LYMPHOCYTE 16 % (20.0-51.0); NEUTROPHILS 78 % (42.0-75.2)
[2022-01-12 15:27] LABS: HYPOCHROMIA 1+; OVALOCYTES 1+; PLATELET ESTIMATE INCREASED (NORMAL)
--- NOTE | 2022-01-12 19:24 | NUR ---
Critical troponin passed on to receiving nurse, Karen.
--- NOTE | 2022-01-12 19:27 | NUR ---
Pt arrived to ICU5 at 1715. admission completed. pt a&o, on bipap @ 40%, turned down to 30% by RT. Pt doesn't appear to be in distress. Satting 98%. Pt able to make needs known. 1829: notified tabitha shaikh about ordering trending troponins. Nelia placed orders. 1929: Report given to DANIELLE Jones, all questions answered.
[2022-01-13] VITALS (1023 sets, daily range): BP systolic 114–123; BP diastolic 44–76; PULSE 75–90; TEMP 98–98.6; O2SAT 76–100
[2022-01-13 06:35] LABS: MEAN CELL VOLUME 94 fl (80.0-100.0); MEAN CORPUSCULAR HGB CONC 31 g/dl (33.0-37.0); MEAN PLATELET VOLUME 11.4 fl (7.4-10.4); RED BLOOD COUNT 2.66 M/mm3 (4.20-5.60); REDCELL DISTRIBUTION WIDTH-CV 14.6 % (11.5-14.5)
[2022-01-13 06:54] LABS: ALBUMIN 2.8 gm/dL (3.4-4.8); CALCIUM 9.3 mg/dL (8.4-10.2); CREATININE, serum 1.08 mg/dL (0.72-1.25); MAGNESIUM 1.8 mg/dL (1.6-2.6); POTASSIUM 4.7 mmol/L (3.5-4.5)
[2022-01-13 06:59] LABS: HEMATOCRIT 25.1 % (42.0-52.0); HEMOGLOBIN 7.8 g/dl (13.5-18.0); MEAN CORPUSCULAR HEMOGLOBIN 29 pg (27-31)
[2022-01-13 07:00] LABS: PLATELET COUNT 205 K/mm3 (130-400)
--- NOTE | 2022-01-13 07:00 | NUR ---
PT RESTING IN BED. VSS. PT ON 4L NC. PT DENIES SOB OR CP. PT GIVEN PHONE AND MENU TO ORDER BREAKFAST. PT HAS CALL LIGHT WITHIN REACH AND INSTRUCTED TO CALL WITH ALL NEEDS.
[2022-01-13 07:12] LABS: TROPONIN-I 0.162 ng/mL (0.00-0.033)
[2022-01-13 07:43] LABS: BAND 11 % (0-10); LYMPHOCYTE 7 % (20.0-51.0); NEUTROPHILS 80 % (42.0-75.2); PLATELET ESTIMATE NORMAL (NORMAL)
--- NOTE | 2022-01-13 10:35 | NUR ---
PT WORKED WITH PHYSICAL THERAPY THEN BECAME SHORT OF BREATH AND TACHYCARDIC UP TO 160'S. PULSE OX DOWN AND PLACED ON OXYMASK. RT CALLED AND PLACED PT BACK ON BIPAP. BP STABLE. BEDSIDE AND INTEROGATED AICD. AMIO BOLUS AND DRIP STARTED. NOTIFIED AND ORDERS RECEIVED FROM EKG AND ATIVAN. NOTIFIED AND ORDERS FOR ABG AND PICC OBTAINED. 1200- PT'S HR DOWN TO 90'S. SATING 100% ON BIPAP. RT CALLED ABG RESULTS TO AND BIPAP ADJUSTED. PT RESTING COMFORTABLE. KALI SANTOS PLACING PICC AT THIS TIME.
[2022-01-13 14:22] LABS: ARTERIAL BLD GAS O2 SATURATION 96.2 % (92-100); ARTERIAL BLD GAS TCO2 CT 27.4; ARTERIAL BLOOD GAS BASE EXCESS 2.7 (-2-2); ARTERIAL BLOOD GAS HCO3 26.2 meq/L (22-26); ARTERIAL BLOOD GAS PCO2 36.3 mmHg (35-45); ARTERIAL BLOOD GAS PO2 78.2 mmHg (80-100); ARTERIAL BLOOD GAS pH 7.48 (7.35-7.45)
[2022-01-13 15:44] LABS: ARTERIAL BLOOD GAS PCO2 53.2 mmHg (35-45); ARTERIAL BLOOD GAS PO2 269.3 mmHg (80-100)
[2022-01-13 15:45] LABS: ARTERIAL BLD GAS O2 SATURATION 99.6 % (92-100); ARTERIAL BLOOD GAS HCO3 25.7 meq/L (22-26)
--- NOTE | 2022-01-13 20:00 | NUR ---
SHIFT REPORT RECEIVED. PT IS DNR/DNI STATUS. PT A&O X4. PT ON BIPAP, TOLERATING WELL. BUL CLEAR, BLL DIMINISHED. PT ABD ROUNDED AND SOFT. ACTIVE BS IN ALL GRULLON. PT WITH UROSTOMYRT LOWER ABD. LOWER ABD BELOW BELLY BUTTON WITH APPROX 7MM HEALING INCISION THAT IS COVERED WITH STERILE GAUZE. PT WITH BUE SCATTERED BRUISING. PT DENIES PAIN AT THIS TIME.
[2022-01-14] VITALS (1360 sets, daily range): BP systolic 116–150; BP diastolic 62–80; PULSE 73–98; TEMP 97.7–98.6; O2SAT 83–100
--- NOTE | 2022-01-14 01:21 | NUR ---
PT'S CALLED FOR UPDATE ON PT'S CONDITION. NOTIFIED HER THAT WE HAVE BEEN ABLE TO ADJUST HIS BIPAP FIO2 FROM 40% DOWN TO 30% AND PT HAS BEEN TOLERATING BIPAP WELL THIS EVENING.
--- NOTE | 2022-01-14 06:21 | NUR ---
PT TOLERATED BIPAP THROUGH OUT THE NIGHT. WAS ABLE TO GO TO 3L NC AFTER WAKING THIS AM. PT REPORTS "I'M FEELING MUCH BETTER, LIKE I CAN BREATH AGAIN."
[2022-01-14 06:24] LABS: MEAN CELL VOLUME 95 fl (80.0-100.0); MEAN CORPUSCULAR HGB CONC 31 g/dl (33.0-37.0); MEAN PLATELET VOLUME 11.5 fl (7.4-10.4); PLATELET COUNT 221 K/mm3 (130-400); RED BLOOD COUNT 2.61 M/mm3 (4.20-5.60); REDCELL DISTRIBUTION WIDTH-CV 15.1 % (11.5-14.5)
[2022-01-14 06:33] LABS: HEMATOCRIT 24.7 % (42.0-52.0); HEMOGLOBIN 7.6 g/dl (13.5-18.0); MEAN CORPUSCULAR HEMOGLOBIN 29 pg (27-31)
[2022-01-14 06:39] LABS: ALBUMIN 2.8 gm/dL (3.4-4.8); CALCIUM 8.9 mg/dL (8.4-10.2); CREATININE, serum 1.33 mg/dL (0.72-1.25); MAGNESIUM 1.8 mg/dL (1.6-2.6); PHOSPHOROUS 3.1 mg/dL (2.3-4.7); POTASSIUM 4.2 mmol/L (3.5-4.5)
[2022-01-14 07:21] LABS: BAND 14 % (0-10); LYMPHOCYTE 3 % (20.0-51.0); METAMYELOCYTE 1 % (0-0); NEUTROPHILS 81 % (42.0-75.2); OVALOCYTES 1+
[2022-01-14 07:22] LABS: PLATELET ESTIMATE NORMAL (NORMAL); SCHISTOCYTES 1+
--- NOTE | 2022-01-14 10:30 | NUR ---
BEDSIDE REPORT RECEIVED FROM DANIELLE CHANDRA. PT IS RESTING IN BED, AMIODARONE INFUSING ORDERED. PT ON 3L O2 PER NC. VSS. CALL LIGHT IN REACH, PT DEINIES NEEDS AT THIS TIME.
[2022-01-15] VITALS (1257 sets, daily range): BP systolic 115–135; BP diastolic 53–80; PULSE 67–92; TEMP 97.7–98.7; O2SAT 84–100
[2022-01-15 04:04] LABS: ARTERIAL BLD GAS O2 SATURATION 96.4 % (92-100); ARTERIAL BLD GAS TCO2 CT 26.8; ARTERIAL BLOOD GAS BASE EXCESS 3.2 (-2-2); ARTERIAL BLOOD GAS HCO3 25.8 meq/L (22-26); ARTERIAL BLOOD GAS PCO2 31.5 mmHg (35-45); ARTERIAL BLOOD GAS pH 7.53 (7.35-7.45)
--- NOTE | 2022-01-15 05:00 | NUR ---
PT FOUND SITTING ON EDGE OF BED. PT TACHYCARDIC AND TACHYPNEA, POINTING AT BIPAP MASK. BIPAP MASK REMOVED AND PT PLACED ON NC AND MOVED INTO BED. PT ONLY ORIENTED TO SELF. CONFUSED AND SAYING "I NEED TO LEAVE FOR A MEETING WITH MY OLD BOSS". WHEN ASKED PT WHAT HIS OLD BOSSES NAME WAS OR WHAT TYPE OF MEETING, PT DID NOT KNOW. PT THOUGHT HE WAS 28YO. HOSPITALIST NOTIFIED. PT CONFUSED AND DISORIENTATED FOR APPROXIMATLY 45MINS. AFTER WHICH PT WAS ORIENTATED WHEN ASESSED BY HOSPITALIST. PT CURRENTLY A&O X4.
[2022-01-15 05:53] LABS: BASO % 0.1 % (0.0-2.0); GRAN # 11.8 K/mm3 (1.4-6.5); GRAN % 94.5 % (42.2-75.2); LYMPH # 0.4 K/mm3 (1.2-3.4); LYMPH % 2.9 % (20.0-51.0); MEAN CELL VOLUME 93 fl (80.0-100.0); MEAN CORPUSCULAR HGB CONC 31 g/dl (33.0-37.0); MEAN PLATELET VOLUME 11.4 fl (7.4-10.4); MONO # 0.2 K/mm3 (0.1-0.6); MONO % 1.6 % (1.7-9.3); PLATELET COUNT 225 K/mm3 (130-400); RED BLOOD COUNT 2.71 M/mm3 (4.20-5.60); REDCELL DISTRIBUTION WIDTH-CV 15.3 % (11.5-14.5)
[2022-01-15 05:57] LABS: HEMATOCRIT 25.2 % (42.0-52.0); HEMOGLOBIN 7.9 g/dl (13.5-18.0); MEAN CORPUSCULAR HEMOGLOBIN 29 pg (27-31)
[2022-01-15 06:12] LABS: CREATININE, serum 1.43 mg/dL (0.72-1.25); MAGNESIUM 1.8 mg/dL (1.6-2.6); PHOSPHOROUS 3.1 mg/dL (2.3-4.7); POTASSIUM 3.5 mmol/L (3.5-4.5)
[2022-01-16] VITALS (585 sets, daily range): BP systolic 118–139; BP diastolic 55–78; PULSE 60–85; TEMP 97.2–99; O2SAT 83–100
[2022-01-16 05:52] LABS: MEAN CELL VOLUME 96 fl (80.0-100.0); MEAN CORPUSCULAR HGB CONC 30 g/dl (33.0-37.0); MEAN PLATELET VOLUME 11.7 fl (7.4-10.4); PLATELET COUNT 206 K/mm3 (130-400); RED BLOOD COUNT 2.75 M/mm3 (4.20-5.60); REDCELL DISTRIBUTION WIDTH-CV 15.4 % (11.5-14.5)
[2022-01-16 06:05] LABS: ALBUMIN 2.9 gm/dL (3.4-4.8); CALCIUM 8.9 mg/dL (8.4-10.2); CREATININE, serum 1.36 mg/dL (0.72-1.25); HEMATOCRIT 26.3 % (42.0-52.0); MAGNESIUM 2.2 mg/dL (1.6-2.6); MEAN CORPUSCULAR HEMOGLOBIN 29 pg (27-31); PHOSPHOROUS 3.4 mg/dL (2.3-4.7); POTASSIUM 4.3 mmol/L (3.5-4.5)
--- NOTE | 2022-01-16 07:00 | NUR ---
PT RESTING IN BED AND JUST FINISHED BREAKFAST. VSS. PT HAS CALL LIGHT WITHIN REACH AND INSTRUCTED TO CALL WITH ALL NEEDS.
[2022-01-16 07:10] LABS: BAND 7 % (0-10); LYMPHOCYTE 3 % (20.0-51.0); NEUTROPHILS 90 % (42.0-75.2); PLATELET ESTIMATE NORMAL (NORMAL); SCHISTOCYTES 1+
--- NOTE | 2022-01-16 13:19 | NUR ---
Reviewed education for chronic heart failure. Reviewed [facility] CHF educational booklet, with emphasis on daily weights, obtaining dry weights, monitoring for edema, shortness of breath, decreased endurance, or feeling full when eating less. Reviewed importance of medication compliance with all prescribed medications and when to call your medical provider (CHF Zones). Patient verbalized understanding. Patient s EF is >35 % which does not qualify for Cardiac Rehab. Staff did discuss the posibility of pulm. rehab if the patient's COPD diagnosis would qualify. Cardiopulmonary Rehab dept number given if questions arise. Staff also brought pt & a CHF zones sheet since not provided in booklet. Approx 15 minutes spent with patient and covering education.
--- NOTE | 2022-01-16 18:16 | NUR ---
REPORT GIVEN TO LA NENA SANTOS ALL QUESITONS ANSWERED. PT WHEELED UP TO 309. PT TRANSFERED TO BED. PT HAS CALL LIGHT WITHIN REACH AND INSTRUCTED TO CALL WT ALL NEEDS. BEDSIDE. LA NENA SANTOS NOTIFIED OF ARRIVAL,
--- NOTE | 2022-01-16 18:30 | NUR ---
Patient transferred to room 309 from ICU. Report recieved from DANIEL Guzman. Patient settled in room. VSS. Patient A&O. Patient currenlty requiring 2L of O2 via nasal cannula. Denies any pain, discomfort, SOA, or further needs at this time. Call light in reach. Family at the bedside.
[2022-01-17 03:20] VITALS: BP 121/60; PULSE 76; TEMP 97.7
--- NOTE | 2022-01-17 05:15 | NUR ---
ASSESSMENT COMPLETE FOR GROUT WORKER. PT RESTING IN BED WATCHING TV. PT DENIED GENERAL PAIN, CHEST PAIN, N,V,D, SOB OR DIZZINESS. PT HAD A PRETTY UNEVENTFUL NIGHT. PT EXPRESSED NO ADDITIONAL NEEDS AT THIS TIME. CALL LIGHT WITHIN REACH.
[2022-01-17 06:54] LABS: MEAN CELL VOLUME 98 fl (80.0-100.0); MEAN CORPUSCULAR HGB CONC 30 g/dl (33.0-37.0); MEAN PLATELET VOLUME 11.7 fl (7.4-10.4); PLATELET COUNT 180 K/mm3 (130-400); RED BLOOD COUNT 2.63 M/mm3 (4.20-5.60); REDCELL DISTRIBUTION WIDTH-CV 15.2 % (11.5-14.5)
[2022-01-17 07:01] LABS: HEMATOCRIT 25.8 % (42.0-52.0); HEMOGLOBIN 7.8 g/dl (13.5-18.0); MEAN CORPUSCULAR HEMOGLOBIN 30 pg (27-31)
[2022-01-17 07:11] VITALS: BP 126/53; PULSE 70; TEMP 97.4
[2022-01-17 07:20] LABS: ALBUMIN 2.6 gm/dL (3.4-4.8); CALCIUM 8.6 mg/dL (8.4-10.2); CREATININE, serum 1.1 mg/dL (0.72-1.25); MAGNESIUM 2.1 mg/dL (1.6-2.6); PHOSPHOROUS 3.4 mg/dL (2.3-4.7); POTASSIUM 4.7 mmol/L (3.5-4.5)
[2022-01-17 07:37] LABS: BAND 13 % (0-10); LYMPHOCYTE 2 % (20.0-51.0); METAMYELOCYTE 1 % (0-0); NEUTROPHILS 81 % (42.0-75.2)
[2022-01-17 07:39] LABS: ANISOCYTOSIS 1+
[2022-01-17 07:40] LABS: HYPOCHROMIA 3+
[2022-01-17 07:43] LABS: PLATELET ESTIMATE NORMAL (NORMAL)
--- NOTE | 2022-01-17 09:09 | NUR ---
On 01/13/22, social service director met with patient and spouse, Arti, to discuss discharge planning. This is a readmission for patient. He plans to return home and we discussed home health to support them at home. Arti and patient are open to home health if needed at discharge.
--- NOTE | 2022-01-17 09:13 | NUR ---
Patient's primary care provider is Dr Hathaway and patient has oxygen at home with [facility]. cone worker met with patient and spouse as patient may be discharged today. Worker presented the IM and signature obtained with original given to patient's spouse. Worker, patient and spouse discuss home health and both state they don't feel that it is necessary at this time. Discharge plan: home with spouse.
[2022-01-17 09:41] LABS: ARTERIAL BLOOD GAS HCO3 24.6 meq/L (22-26); ARTERIAL BLOOD GAS PCO2 42.7 mmHg (35-45); ARTERIAL BLOOD GAS PO2 90.9 mmHg (80-100); ARTERIAL BLOOD GAS pH 7.38 (7.35-7.45)
[2022-01-17 09:42] LABS: ARTERIAL BLD GAS TCO2 CT 24.6; ARTERIAL BLOOD GAS BASE EXCESS -0.6 (-2-2)
[2022-01-17] MEDS ORDERED: CEFTIN500 MG PO (11:09)
[2022-01-17 11:11] VITALS: BP 122/52; PULSE 69; TEMP 98.5
[2022-01-17] MEDS ORDERED: PREDNISONE20 MG PO (11:13)
[2022-01-17] MEDS ORDERED: TOPROL XL 25MG25 MG PO (11:14)
--- NOTE | 2022-01-17 13:31 | NUR ---
Primary nurse was assisted with [phone] patient care by [employer] student Lina Mace and [employer] instructor Nikia SCOTT RN
--- NOTE | 2022-01-17 15:38 | NUR ---
Agree with most of the student nurses assessment. LL lung sound absent. A&Ox3. VSS. IV CDI. Ostomy intact. Denies pain and discomfort. Call light within reach
== END 2022-01-17 14:30 | disposition home or self-care (01) | DRG 193 ==
LOC: COL.ER 14:15 → ICU 15:49 → MEDICAL 01-16 18:32
PROVIDERS: Emergency Medicine; Internal Medicine Pulmonary Disease; Physician Assistant; ADMIT Internal Medicine
PROC: 5A09557 Assistance with Respiratory Ventilation, Greater than 96 Consecutive Hours, Continuous Positive Airway Pressure (ICD-10-PCS; 2022-01-12)
PROC: 02HV33Z Insertion of Infusion Device into Superior Vena Cava, Percutaneous Approach (ICD-10-PCS; principal; 2022-01-13)
DX: J18.9 Pneumonia, unspecified organism (principal); J96.02 Acute respiratory failure with hypercapnia; I21.A1 Myocardial infarction type 2; Z66 Do not resuscitate; J96.01 Acute respiratory failure with hypoxia; I50.43 Acute on chronic combined systolic (congestive) and diastolic (congestive) heart failure; J44.1 Chronic obstructive pulmonary disease with (acute) exacerbation; E87.2 Acidosis; I42.8 Other cardiomyopathies; E87.5 Hyperkalemia; D72.829 Elevated white blood cell count, unspecified; D64.9 Anemia, unspecified; Z20.822 Contact with and (suspected) exposure to COVID-19; I44.7 Left bundle-branch block, unspecified; I08.1 Rheumatic disorders of both mitral and tricuspid valves; N18.30 Chronic kidney disease, stage 3 unspecified; E87.70 Fluid overload, unspecified; Z85.51 Personal history of malignant neoplasm of bladder; Z85.528 Personal history of other malignant neoplasm of kidney; Z95.0 Presence of cardiac pacemaker; Z87.19 Personal history of other diseases of the digestive system; Z85.118 Personal history of other malignant neoplasm of bronchus and lung
CPT/HCPCS: C1751; C1892; J0282; J0456; J0692; J0696; J1644; J1940; J2060; J2920; J2930; J3010; J3475; J7050; J7060; J7120; J7512

== ENCOUNTER → 2022-07-10 | Outpatient (CLI) | payer MEDICARE, BC ==
[~2022-07-10] MED LIST changes: +CEFTIN500 MG PO; +TOPROL XL 25MG25 MG PO
== END ==
LOC: COL.RAD 06-30 10:00
DX: J43.9 Emphysema, unspecified (principal); R22.9 Localized swelling, mass and lump, unspecified; Z90.5 Acquired absence of kidney; C67.8 Malignant neoplasm of overlapping sites of bladder; Z90.79 Acquired absence of other genital organ(s)
CPT/HCPCS: Q9967